=== PATIENT | male | born 1980 | race Caucasian/White ===

== ENCOUNTER 2016-08-09 15:16 | Emergency (ER) | payer OTHER ==
[~2016-08-09] VITALS: Ht 170.2 cm; Wt 59.0 kg
[2016-08-09 15:21] VITALS: TEMP 36.6; Ht 170.2 cm; Wt 59.0 kg
--- NOTE | 2016-08-09 15:51 | DIAGNOSTIC IMAGING REPORT ---
LEFT FOREARM 2 VIEWS CLINICAL HISTORY: Fall with left arm pain. FINDINGS: AP and lateral views of the left forearm are obtained. No prior studies are available for comparison at the time of dictation. The skeletal structures are well mineralized. There is no radiographic evidence of left forearm fracture. The elbow and wrist joints appear maintained. Mild soft tissue swelling is noted on the ulnar side of the distal forearm. IMPRESSION: Mild soft tissue swelling. There is no radiographic evidence of left forearm fracture. Electronically signed by: Ancelmo Givens M.D. 08/09/2016 3:50 PM Dictated Date/Time: 08/09/2016 3:48 PM
--- NOTE | 2016-08-09 16:11 | EMERGENCY ROOM VISIT NOTE ---
ED Visit Note First contact with patient: 15:30 CHIEF COMPLAINT: Wrist injury HISTORY OF PRESENT ILLNESS: This 36-year-old male patient presents to the emergency department ambulatory complaining of pain in the left forearm after falling while walking the dog and injuring his arm. He states he fell onto an outstretched hand. The patient is able to move their wrist. The patient states the pain is sharp and 5/10. No laceration, no weakness. No numbness or tingling. The patient denies any other injury. The patient is able to move their fingers and elbow without difficulty. The patient has none had any previous injuries to this arm. The patient has taken nothing for the pain. The patient reports an ongoing chronic back issue. The patient states that he is not able to sit or stand for long periods of time due to his chronic back pain. He states that this has not changed at all. REVIEW OF SYSTEMS: A 6 system review of systems was performed with positives and pertinent negatives in the HPI. ALLERGIES: Sulfa MEDICATIONS: Patient denies PMH: Patient denies SOCIAL HISTORY: The patient does not smoke. He lives locally PHYSICAL EXAM: Vital Signs: Reviewed Nurse's notes, vital signs stable. GENERAL : Is a 36-year-old male, in no acute distress, but appears to be in pain, well- developed, well-nourished. NEURO: Alert and oriented to person place and time. Normal sensation to light and sharp touch. MUSCULOSKELETAL: There is no deformity of the left wrist. There is no erythema and no ecchymosis. There is no edema. Tenderness over mid forearm. There is no ecchymosis, edema or deformity noted to the forearm. There is no snuff box tenderness. There is tenderness with palpation of the mid shaft of the left forearm.. Range of motion is intact at the wrist, elbow and shoulder. There is no tenderness of the elbow, hand or fingers. Assistant Cook strength 5/5. Radial pulse 2+. SKIN: Normal and intact. The hand is warm and well perfused with capillary refill less than 2 seconds. EMERGENCY DEPARTMENT COURSE: I examined the patient. An X-ray of the left forearm wed by myself and radiology and showed no fracture or dislocation. An arm sling was placed under my direction and the position was satisfactory. Neurovascular status rechecked and intact. The patient should follow-up with orthopedics next week if symptoms are not improving. The patient reports a history of chronic back pain. He was brought into the emergency department from private vehicle on a litter. The patient requested the same at the time of discharge. Per nursing staff the patient was able to get up and ambulate out of without any difficulty. He states that he has had chronic back issues and stated that there was no change or worsening back pain after the fall. The patient was discharged home in good condition. LEFT FOREARM 2 VIEWS CLINICAL HISTORY: Fall with left arm pain. FINDINGS: AP and lateral views of the left forearm are obtained. No prior studies are available for comparison at the time of dictation. The skeletal structures are well mineralized. There is no radiographic evidence of left forearm fracture. The elbow and wrist joints appear maintained. Mild soft tissue swelling is noted on the ulnar side of the distal forearm. IMPRESSION: Mild soft tissue swelling. There is no radiographic evidence of left forearm fracture. Current/Historical Medications Scheduled Multivitamin (Multivitamin), 1 TAB PO DAILY Allergies Coded Allergies: Sulfa Drugs (Verified Allergy, Unknown, ., 12/17/14) Vital Signs Date Time Temp Pulse Resp B/P (MAP) Pulse Ox O2 Delivery O2 Flow Rate FiO2 08/09/16 16:27 67 18 102/66 97 08/09/16 15:21 36.6 65 18 117/72 99 Room Air Departure Information Impression Primary Impression: Injury of left lower arm Dispostion Home / Self-Care Condition GOOD Referrals No Doctor, Assigned (PCP) Eric Bermudez D.O. Patient Instructions ED Contusion Upper Ext, [facility] [employer] Additional Instructions Wear the sling as needed over the next several days for pain. Be sure to move the shoulder to help prevent a frozen shoulder Motrin 600 mg every 6-8 hours for moderate pain Contact orthopedics to schedule a follow-up appointment for further evaluation and management Return with any worsening symptoms Problem Qualifiers Primary Impression: Injury of left lower arm Encounter type: initial encounter Qualified Codes: S59.912A - Unspecified injury of left forearm, initial encounter
[2016-08-09 16:27] VITALS: BP 102/66; PULSE 67; O2SAT 97
== END 2016-08-09 16:27 | disposition home or self-care (01) ==
LOC: C.EDD 15:21
DX: S59.912A Unspecified injury of left forearm, initial encounter (principal); W19.XXXA Unspecified fall, initial encounter; Y93.K1 Activity, walking an animal

== ENCOUNTER 2016-08-11 13:56 | Emergency (ER) | payer OTHER ==
[~2016-08-11] VITALS: Ht 170.2 cm; Wt 59.1 kg
[2016-08-11 14:00] VITALS: TEMP 36.9; Ht 170.2 cm; Wt 59.1 kg
--- NOTE | 2016-08-11 14:37 | EMERGENCY ROOM VISIT NOTE ---
ED Visit Note First contact with patient: 14:08 CHIEF COMPLAINT: Left arm pain HISTORY OF PRESENT ILLNESS: This 36-year-old male patient presents to the emergency department with his mother complaining of pain in the left forearm. Patient was evaluated in this emergency department 2 days ago after a FOOSH injury from a fall while walking his dog. Patient states he is back today because he is still having pain in the arm, "it isn't feeling any better and it feels unstable when I move it." The patient states he has not been wearing the sling that was given to him at discharge 2 days ago, and he has not been taking any ibuprofen or Tylenol for the pain. He has been using ice intermittently with some improvement. The patient also has not called orthopedics to set up a follow-up appointment yet. The patient rates his pain as aching and 4/10. The patient has not had previous fractures to this elbow. The patient does not have any numbness or tingling. The patient denies any other injuries. REVIEW OF SYSTEMS: A 6 system review of systems was completed with positives and pertinent negatives listed in the HPI. ALLERGIES: See chart MEDICATIONS: See chart PMH: See chart SOCIAL HISTORY: See chart PHYSICAL EXAM: Vital Signs: Reviewed Nurse's notes, vital signs stable. GENERAL : Pleasant and cooperative, in no acute distress, well-developed, well- nourished. SKIN: The skin was without rashes, erythema, edema, warmth, or bruising. Capillary reflex less than 3 seconds. MUSCULOSKELETAL: The patient is holding their left forearm. There is tenderness over the midshaft of the left forearm, but no bruising or swelling noted. There is no tenderness of the left wrist or elbow. There is no tenderness with range of motion of the left wrist or elbow. There is no tenderness of the shoulder, wrist, or hand. The patient is able to give a thumbs up, make an OK sign, and a #3 with their fingers. Radial pulse 2+. NEURO: Patient was alert and oriented to person place and time. Normal sensation to light and sharp touch. EMERGENCY DEPARTMENT COURSE: I examined the patient. An x-ray of the left forearm from 2 days ago was reviewed by myself and I also reviewed the radiology report, which showed no acute fracture. There is a small linear radiopaque lucency noted on the lateral view of the distal forearm that does not correlate with patient's pain, patient questioned about this and has no recollection of a possible foreign body. The patient is very concerned about a possible "hairline fracture" and states multiple times that "my arm feels unstable." Due to this concern, the patient was placed in an Ortho-Glass sugar tong splint to the left forearm under my direction and the position was satisfactory. Neurovascular status was rechecked and intact. The patient was instructed again to follow up with orthopedics within the next few days, he verbalized understanding. The patient was discharged home in stable condition. Current/Historical Medications Scheduled Multivitamin (Multivitamin), 1 TAB PO DAILY Allergies Coded Allergies: Sulfa Drugs (Verified Allergy, Unknown, ., 12/17/14) Vital Signs Date Time Temp Pulse Resp B/P (MAP) Pulse Ox O2 Delivery O2 Flow Rate FiO2 08/11/16 16:02 65 18 97/66 97 08/11/16 14:00 36.9 73 16 108/65 96 Room Air Departure Information Impression Primary Impression: Injury of forearm, left Dispostion Home / Self-Care Condition GOOD Referrals No Doctor, Assigned (PCP) Patient Instructions My [facility] Additional Instructions Where the splint on your left arm at all times. Keep the splint clean and dry. The splint cannot get wet. You may wear the sling as needed for comfort. Be sure to remove the sling 3 or 4 times a day to keep your shoulder from getting stiff. Tylenol 1000 mg every 8 hours or ibuprofen 600 mg every 6-8 hours as needed for pain. Call orthopedics today to set up an appointment for follow-up next week. Problem Qualifiers Primary Impression: Injury of forearm, left Encounter type: subsequent encounter Qualified Codes: S59.912D - Unspecified injury of left forearm, subsequent encounter
[2016-08-11] MEDS ORDERED: MULT-506 PO (16:01)
[2016-08-11 16:02] VITALS: BP 97/66; PULSE 65; O2SAT 97
== END 2016-08-11 16:02 | disposition home or self-care (01) ==
LOC: C.EDB 13:57 → C.EDD 16:02
DX: S59.912D Unspecified injury of left forearm, subsequent encounter (principal); W18.30XD Fall on same level, unspecified, subsequent encounter; Y93.K1 Activity, walking an animal

== ENCOUNTER 2017-03-03 13:57 | Inpatient (IN) | payer OTHER ==
[~2017-03-03] VITALS: Ht 170.2 cm; Wt 58.1 kg
[~2017-03-03 13:57] MED LIST: MULT-506 PO
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
[2017-03-03] MEDS ORDERED: LIDODERM (LIDOCAINE) PATCH 5% TD STA (15:03)
[2017-03-03 15:17] LABS: BASO % 0.3 %; BASO ABS # 0.02 K/uL (0-0.2); EOS % 0.4 %; EOS ABS # 0.03 K/uL (0-0.5); HEMATOCRIT 42.4 % (42-52); HEMOGLOBIN 15.6 g/dL (14.0-18.0); IG# 0.01 K/uL (0.00-0.02); LYMPH % 19.1 %; LYMPH ABS # 1.31 K/uL (1.2-3.4); MEAN CELL VOLUME 89.5 fL (80-100); MEAN CORPUSCULAR HEMOGLOBIN 32.9 pg (25-34); MEAN CORPUSCULAR HGB CONC 36.8 g/dl (32-36); MEAN PLATELET VOLUME 10.3 fL (7.4-10.4); MONO % 4.8 %; MONO ABS # 0.33 K/uL (0.11-0.59); NEUT % 75.3 %; NEUT ABS # 5.16 K/uL (1.4-6.5); PLATELET COUNT 237 K/uL (130-400); RED CELL DISTRIBUTION WIDTH CV 12.4 % (11.5-14.5); RED CELL DISTRIBUTION WIDTH SD 40.5 fL (36.4-46.3); WHITE BLOOD COUNT 6.86 K/uL (4.8-10.8)
[2017-03-03 15:35] LABS: ALBUMIN 3.9 gm/dl (3.4-5.0); CALCIUM 8.6 mg/dl (8.5-10.1); CREATININE 0.74 mg/dl (0.60-1.40); POTASSIUM 3.9 mmol/L (3.5-5.1)
[2017-03-03 15:46] LABS: TOTAL PROTEIN 7.4 gm/dl (6.4-8.2)
[2017-03-03] MEDS ORDERED: TRAMADOL HCL 50 MG TAB PO STA (15:52)
[2017-03-03] MEDS ORDERED: CYCLOBENZAPRINE HCL 10 MG TAB PO STA (16:44)
[2017-03-03] MEDS ORDERED: ACETAMINOPHEN 500 MG TAB PO STA (18:30)
[2017-03-03] MEDS ORDERED: NURSING VERBAL MED ORDER ONE (20:30)
[2017-03-03 20:41] VITALS: O2SAT 99
[2017-03-03] MEDS ORDERED: BISMUTH SUBSALICYLATE PER ML OMNICELL CHARGE PO PRN (20:45)
[2017-03-03] MEDS ORDERED: CYCLOBENZAPRINE HCL 10 MG TAB PO PRN (20:45)
[2017-03-03] MEDS ORDERED: hydrOXYzine HCL 25 MG TAB PO PRN ×2 (20:45)
[2017-03-03] MEDS ORDERED: ALUMINUM/MAGNESIUM SUSP 30 ML UDC PO PRN (20:45)
[2017-03-03] MEDS ORDERED: ACETAMINOPHEN 325 MG TAB PO PRN (20:45)
[2017-03-03] MEDS ORDERED: MAGNESIUM HYDROXIDE SUSP 30 ML UDC PO PRN (20:45)
[2017-03-03] MEDS ORDERED: SODIUM CHLORIDE 0.65% NA SOLN 45 ML (OCEAN) PRN (20:45)
[2017-03-03 21:44] VITALS: BP 122/72; PULSE 58; TEMP 37; Ht 170.2 cm; Wt 58.1 kg
[2017-03-04 06:40] VITALS: BP 121/84; TEMP 36.3
--- NOTE | 2017-03-04 09:27 | Psychiatric History & Physical ---
History Date of Service Mar 04, 2017. Identifying Data Padilla Hanna is a 36-year-old male admitted involuntarily on Mar 03, 2017 at 20:22 who was brought to the emergency department by EMS with reports of severe pain that "going on for the last 4-1/2 years. He made suicidal statements saying that he would kill himself by walking into traffic because the pain was so severe. Chief Complaint "I haven't slept well for the last couple of weeks.". History of Present Illness The patient is a 36-year-old male with past psychiatric history including anorexia bulimia that was treated inpatient [place] as a teen. He is not currently in any psychiatric treatment beyond having therapy with Flavia Solis. He reports that for the half years ago he had an accident at work while lifting in which he injured his back. He underwent an MRI, not at our facility, but per patient report, there were no bony abnormalities and no problems with discs. He underwent physical therapy which she said "didn't work". He said that the pain continued but was bearable until about 1-1/2 years ago when it got worse. It worsened again several weeks ago after he attempted to engage in stretching exercises. He had been able to walk on soft surfaces, stretches back out but recently claims he is not able to walk on any hard surface, without having mid back pain that he describes as an "irritation" and described as burning and occasionally shooting. He has some neck pain as well but not always coincident with his back pain. He denies radiculopathy. There have been times in his life when walking has helped as long as he stayed on soft surfaces. Recently as his pain has worsened, he has essentially taken to his bed. He has made claims that he cannot sit at all, eats meals while laying on his back, can only eat food prepared by his mother with whom he lives. Yesterday, he admits that he had been desperate to find relief from the pain and therefore presented to the emergency department. He does admit to making statements about being suicidal and thinking about walking into traffic, but today denies that he has any intent to do that and denies that he wants to end his life, saying that his statements were an expression of desperation. He describes that he has been depressed since he was a teenager. At that time he described his depression as a "heaviness, darkness". He was tried on Paxil which she felt didn't help and was also in therapy. This also coincided with the time he was severely anorexic and bulimic and was hospitalized at an eating disorders clinic in [place]. He feels this depression is different, more "situational" and directly related to his level of pain. He reports that his appetite has been okay although has lost about 15 pounds over the last 5 years since returning to [place] to live with his mother. He reports difficult sleep, specifically with initial insomnia, at its worst only getting 2 hours of sleep per night. He denies chronic anxiety or worry. He denies any self- injurious behaviors. He denies ever having had any auditory or visual hallucinations. He denies any first rank symptoms of schizophrenia. His current BMI is 20.1 and denies any focus on his weight although acknowledges that he appears slender and his mother is concerned. He denies any discrete episodes of euphoric mood, sleeplessness or pleasure seeking behaviors that would be congruent with a bipolar disorder. Past Psychiatric History Current OP Treatment: therapist (Flavia Jang) Prior OP Treatment: therapist Prior Psych Hospitalizations: none Access to a Gun: No Suicide Attempts: No Past Medication Trials Paxil- didn't work Past Medical/Surgical History History of Concussion/Seizure: No (1) Chronic back pain Allergies Allergies: Coded Allergies: Sulfa Drugs (Verified Allergy, Unknown, ., 03/03/17) Home Medications No Active Prescriptions or Reported Meds Family History FHx: cancer History of Suicide: Yes (cousin) History of Substance Abuse: No Psychiatric History: No Alcohol Use Alcohol Use In Past 12 Months: No AUDIT Total Score: 0 Smoking Use Smoking Status: Former Smoker Substance History Denies Personal History Lives in: [place] with his mother Childhood: Raised by both parents until they . He has one older sister. He has 1- 1/2 years of college but did not obtain a degree. He has not been able to work in the last 5 years. 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 Education: started college Work History: Hasn't worked in 5 years Relationship History: ( for 7 or 8 years, having 2-3 years ago) Children: none Spiritual Affiliation: Roman Catholic Legal History: none Psychological Trauma History: Denies Hx Traumatic Event Review of Systems Constitutional: denies no symptoms reported, denies see HPI, denies chills, denies diaphoresis, denies fever, denies malaise, denies weakness, denies other Eyes: denies: no symptoms, as stated in HPI, eye pain, tearing, itching, redness, discharge, double vision, visual changes, blurred vision, photophobia, other ENT: denies: no symptoms reported, see HPI, ear pain, ear discharge, loss of hearing, tinnitus, nasal pain, nasal congestion, rhinorrhea, epistaxis, sore throat, stidor, throat swelling, mouth pain, mouth swelling, dental pain, gum swelling, other Cardiovascular: denies: no symptoms reported, see HPI, chest pain, chest tightness, chest pressure, diaphoresis, palpitations, syncope, other Respiratory: denies: no symptoms reported, see HPI, cough, orthopnea, short of breath, stridor, wheezing, sputum production, cyanosis, LOAIZA, PND, other Gastrointestinal: denies no symptoms reported, denies see HPI, denies abdominal pain, denies constipation, denies diarrhea, denies nausea, denies vomiting, denies other Genitourinary - Male: denies: no symptoms, see HPI, rash, amenorrhea, penile itching, penile discharge, testicular pain, testicular swelling, impotence, other Musculoskeletal: other (mid back pain rated 4 out of 10, described as burning, occasionally shooting) Integumentary: denies no symptoms reported, denies see HPI, denies change in color, denies change in hair/nails, denies dryness, denies lesions, denies lumps , denies rash, denies other Neurologic: denies: no symptoms, see HPI, headache, numbness, paresthesias, pre -existing deficit, seizure, tingling, tremors, general weakness, tics, focal weakness, vertigo, lethargy, memory loss, dizziness, other Endocrine: denies: no symptoms, as stated in HPI, cold intolerance, heat intolerance, hair changes, goiter, polydipsia, polyuria, skin changes, other Hematologic / Lymphatic: denies: no symptoms, as stated in HPI, abnormal clotting, adenopathy, anemia, easy bleeding, easy bruising, gums bleeding, petechiae, other Examination Physical Examination Exam performed by Dr. lim in the emergency department yesterday has been reviewed and accepted his medical clearance for our unit Vital Signs Vital Signs Past 12 Hours Date Time Temp Pulse Resp B/P (MAP) Pulse Ox O2 Delivery O2 Flow Rate FiO2 03/04/17 06:40 36.3 16 121/84 03/03/17 21:44 37.0 58 18 122/72 Laboratory Results Last 24 Hours Test 03/03/17 14:25 03/03/17 15:00 03/03/17 16:03 Urine Color YELLOW Urine Appearance TURBID Urine pH 7.5 Urine Specific [place] 1.022 Urine Protein NEG Urine Glucose (UA) NEG Urine Ketones NEG Urine Occult Blood NEG Urine Nitrite NEG Urine Bilirubin NEG Urine Urobilinogen NEG Urine Leukocyte Esterase NEG Urine WBC (Auto) 1-5 /hpf Urine RBC (Auto) 0-4 /hpf Urine Hyaline Casts (Auto) 1-5 /lpf Urine Epithelial Cells (Auto) 5-10 /lpf Urine Bacteria (Auto) NEG Urine Opiates Screen NEG Urine Methadone, Qualitative NEG Urine Barbiturates NEG Urine Phencyclidine (PCP) Level NEG Ur Amphetamine/Methamphetamine NEG MDMA (Ecstasy) Screen NEG Urine Benzodiazepines Screen NEG Urine Cocaine Metabolite NEG Urine Marijuana (THC) NEG White Blood Count 6.86 K/uL Red Blood Count 4.74 M/uL Hemoglobin 15.6 g/dL Hematocrit 42.4 % Mean Corpuscular Volume 89.5 fL Mean Corpuscular Hemoglobin 32.9 pg Mean Corpuscular Hemoglobin Concent 36.8 g/dl Platelet Count 237 K/uL Mean Platelet Volume 10.3 fL Neutrophils (%) (Auto) 75.3 % Lymphocytes (%) (Auto) 19.1 % Monocytes (%) (Auto) 4.8 % Eosinophils (%) (Auto) 0.4 % Basophils (%) (Auto) 0.3 % Neutrophils # (Auto) 5.16 K/uL Lymphocytes # (Auto) 1.31 K/uL Monocytes # (Auto) 0.33 K/uL Eosinophils # (Auto) 0.03 K/uL Basophils # (Auto) 0.02 K/uL RDW Standard Deviation 40.5 fL RDW Coefficient of Variation 12.4 % Immature Granulocyte % (Auto) 0.1 % Immature Granulocyte # (Auto) 0.01 K/uL Sodium Level 137 mmol/L Potassium Level 3.9 mmol/L Chloride Level 102 mmol/L Carbon Dioxide Level 31 mmol/L Anion Gap 4.0 mmol/L Blood Urea Nitrogen 15 mg/dl Creatinine 0.74 mg/dl Est Creatinine Clear Calc Drug Dose 113.4 ml/min Estimated GFR () 137.5 Estimated GFR (Non- 118.7 BUN/Creatinine Ratio 19.7 Random Glucose 102 mg/dl Calcium Level 8.6 mg/dl Magnesium Level 2.4 mg/dl Total Bilirubin 0.5 mg/dl Aspartate Amino Transf (AST/SGOT) 16 U/L Alanine Aminotransferase (ALT/SGPT) 24 U/L Alkaline Phosphatase 53 U/L Total Protein 7.4 gm/dl Albumin 3.9 gm/dl Globulin 3.5 gm/dl Albumin/Globulin Ratio 1.1 Lipase 316 U/L Thyroid Stimulating Hormone (TSH) 0.744 uIu/ml Acetaminophen Level < 2 ug/ml Ethyl Alcohol mg/dL < 3.0 mg/dl Troponin I < 0.015 ng/ml Mental Examination During interview pt is: alert and oriented, cooperative Appearance: disheveled Eye contact is: good Motor behavior is: other (late on back in bed throughout interview, later seen in the hallway walking) Speech: normal in rate, rhythm & volume Affect: depressed, blunted, anxious Mood is: depressed Thought process: goal directed Thought content: reality based without delusions Suicidal thought are: present, Plan: denied, Intent: denied Homicidal thoughts are: denied Hallucinations: denies auditory, denies visual Cognition: memory grossly intact, attention grossly intact, language grossly intact Intelligence estimated to be: average Insight: impaired Judgement: impaired ( ) Impression / Recommendations Impression 36-year-old gentleman who presented to the emergency department because of severe back pain and suicidal thinking. He was 302. Today he admits to the suicidal statements but denies he has plan or intent, does not want to , and sees the Terry expression of his desperation to get help. He reports pain that is limiting his ability to function and even at the time of my interview was unwilling to get out of bed. The first thing we will do is consult [facility] hospitalist's to work his back pain up to rule out an organic cause. If nothing organic, could be seen as a psychotic depression. I suggested we start venlafaxine to target both mood and pain which he is hesitant to do, not wanting to be on medications. He is willing for a full medical workup. I have spoken with Desiree Guerrero from the hospitalist service who is agreeable to coming to evaluate him in transferring to the medical floor if needed. He is here on a 302 but meets no criteria at this point for medications over objection. He would likely not meet criteria for a 303 as he is not metabolically deranged, not psychotic. Inventory Assets Strengths: Lives with mother Needs: To cooperate with full workup Risk Factors Assessment Male: Yes : Yes /single/: Yes Higher / Fall in social status: Yes Access to guns: No Health problems: Yes Mental Health Diagnoses: Yes Substance use disorders: No Previous attempt: No Previous psychiatric stay: No Smoker: No Protective Factors Assessment [employer] beliefs: Yes : No Responsible for young children: No Employed: No Supportive family: Yes Recommendations (1) Unspecified mood [affective] disorder 03/04 -Recommend a trial of Effexor XR 37.5 mg titrating as tolerated which the patient is currently refusing - Will consult [facility] hospitalist for medical workup of pain to rule out an organic cause - Every 15 minute checks for safety - Encourage participation in group and individual counseling as able - The patient is here on a 302. Will continue to gather data toward the need for further inpatient care - Coordinate care with Flavia Jang (2) Chronic back pain 03/04 - Consult [facility] for medical workup CPT Code Initial Hospital Care: 54570
--- NOTE | 2017-03-04 10:00 | Psychiatric History & Physical ---
Psychiatric History & Physical History Date of Service Mar 04, 2017. Identifying Data Padilla Hanna is a 36-year-old male admitted involuntarily on Mar 03, 2017 at 20:22 who was brought to the emergency department by EMS with reports of severe pain that "going on for the last 4-1/2 years". He made suicidal statements saying that he would kill himself by walking into traffic because the pain was so severe. 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 Chief Complaint "I haven't been sleeping well". History of Present Illness The patient is a 36-year-old male with past psychiatric history including anorexia bulimia that was treated inpatient [place] as a teen. He is not currently in any psychiatric treatment beyond having therapy with Flavia Jang. He reports that for the half years ago he had an accident at work while lifting in which he injured his back. He underwent an MRI, not at our facility, but per patient report, there were no bony abnormalities and no problems with discs. He underwent physical therapy which she said "didn't work". He said that the pain continued but was bearable until about 1-1/2 years ago when it got worse. It worsened again several weeks ago after he attempted to engage in stretching exercises. He had been able to walk on soft surfaces, but recently claims he is not able to walk on any hard surface, without having mid back pain that he describes as an "irritation" and described as burning and occasionally shooting. He has some neck pain as well but not always at the same time as his back pain. He denies radiculopathy. There have been times in his life when walking has helped as long as he stayed on soft surfaces. Recently, as his pain has worsened, he has essentially taken to his bed. He has made claims that he cannot sit at all, eats meals while laying on his back, can only eat food prepared by his mother with whom he lives. Yesterday, he admits that he had been desperate to find relief from the pain and therefore presented to the emergency department. He does admit to making statements about being suicidal and thinking about walking into traffic, but today denies that he has any intent to do that and denies that he wants to end his life, saying that his statements were an expression of desperation. Additional history was provided by BRIDGER Hays: He describes that he has been depressed since he was a teenager. At that time he described his depression as a "heaviness, darkness". He was tried on Paxil which she felt didn't help and was also in therapy. This also coincided with the time he was severely anorexic and bulimic and was hospitalized at an eating disorders clinic in [place]. He feels this depression is different, more "situational" and directly related to his level of pain. He reports that his appetite has been okay although has lost about 15 pounds over the last 5 years since returning to [place] to live with his mother. He reports difficult sleep, specifically with initial insomnia, at its worst only getting 2 hours of sleep per night. He denies chronic anxiety or worry. He denies any self- injurious behaviors. He denies ever having had any auditory or visual hallucinations. He denies any first rank symptoms of schizophrenia. His current BMI is 20.1 and denies any focus on his weight although acknowledges that he appears slender and his mother is concerned. He denies any discrete episodes of euphoric mood, sleeplessness or pleasure seeking behaviors that would be congruent with a bipolar disorder. Past Psychiatric History Current OP Treatment: therapist (Flavia Jang) Prior OP Treatment: therapist Prior Psych Hospitalizations: none Access to a Gun: No Suicide Attempts: No Past Medication Trials Paxil- didn't work Past Medical/Surgical History History of Concussion/Seizure: No (1) Chronic back pain Allergies Allergies: Coded Allergies: Sulfa Drugs (Verified Allergy, Unknown, ., 03/03/17) Home Medications No Active Prescriptions or Reported Meds Family History FHx: cancer History of Suicide: Yes (cousin) History of Substance Abuse: No Psychiatric History: No Alcohol Use Alcohol Use In Past 12 Months: No AUDIT Total Score: 0 Smoking Use Smoking Status: Former Smoker Substance History Denies Personal History Lives in: [place] with his mother Childhood: Raised by both parents until they . He has one older sister. He has 1- 1/2 years of college but did not obtain a degree. He has not been able to work in the last 5 years. 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 Education: started college Work History: Hasn't worked in 5 years Relationship History: ( for 7 or 8 years, having 2-3 years ago) Children: none Spiritual Affiliation: Congregation Legal History: none Psychological Trauma History: Denies Hx Traumatic Event Review of Systems Constitutional: denies no symptoms reported, denies see HPI, denies chills, denies diaphoresis, denies fever, denies malaise, denies weakness, denies other Eyes: denies: no symptoms, as stated in HPI, eye pain, tearing, itching, redness, discharge, double vision, visual changes, blurred vision, photophobia, other ENT: denies: no symptoms reported, see HPI, ear pain, ear discharge, loss of hearing, tinnitus, nasal pain, nasal congestion, rhinorrhea, epistaxis, sore throat, stidor, throat swelling, mouth pain, mouth swelling, dental pain, gum swelling, other Cardiovascular: denies: no symptoms reported, see HPI, chest pain, chest tightness, chest pressure, diaphoresis, palpitations, syncope, other Respiratory: denies: no symptoms reported, see HPI, cough, orthopnea, short of breath, stridor, wheezing, sputum production, cyanosis, LOAIZA, PND, other Gastrointestinal: denies no symptoms reported, denies see HPI, denies abdominal pain, denies constipation, denies diarrhea, denies nausea, denies vomiting, denies other Genitourinary - Male: denies: no symptoms, see HPI, rash, amenorrhea, penile itching, penile discharge, testicular pain, testicular swelling, impotence, other Musculoskeletal: other (mid back pain rated 4 out of 10, described as burning, occasionally shooting) Integumentary: denies no symptoms reported, denies see HPI, denies change in color, denies change in hair/nails, denies dryness, denies lesions, denies lumps , denies rash, denies other Neurologic: denies: no symptoms, see HPI, headache, numbness, paresthesias, pre -existing deficit, seizure, tingling, tremors, general weakness, tics, focal weakness, vertigo, lethargy, memory loss, dizziness, other Endocrine: denies: no symptoms, as stated in HPI, cold intolerance, heat intolerance, hair changes, goiter, polydipsia, polyuria, skin changes, other Hematologic / Lymphatic: denies: no symptoms, as stated in HPI, abnormal clotting, adenopathy, anemia, easy bleeding, easy bruising, gums bleeding, petechiae, other Examination Physical Examination Exam performed by Dr. Nunes in the emergency department yesterday has been reviewed and accepted his medical clearance for admission to our unit. Vital Signs Vital Signs Past 12 Hours Date Time Temp Pulse Resp B/P (MAP) Pulse Ox O2 Delivery O2 Flow Rate FiO2 03/04/17 06:40 36.3 16 121/84 03/03/17 21:44 37.0 58 18 122/72 Laboratory Results Last 24 Hours Test 03/03/17 14:25 03/03/17 15:00 03/03/17 16:03 Urine Color YELLOW Urine Appearance TURBID Urine pH 7.5 Urine Specific [place] 1.022 Urine Protein NEG Urine Glucose (UA) NEG Urine Ketones NEG Urine Occult Blood NEG Urine Nitrite NEG Urine Bilirubin NEG Urine Urobilinogen NEG Urine Leukocyte Esterase NEG Urine WBC (Auto) 1-5 /hpf Urine RBC (Auto) 0-4 /hpf Urine Hyaline Casts (Auto) 1-5 /lpf Urine Epithelial Cells (Auto) 5-10 /lpf Urine Bacteria (Auto) NEG Urine Opiates Screen NEG Urine Methadone, Qualitative NEG Urine Barbiturates NEG Urine Phencyclidine (PCP) Level NEG Ur Amphetamine/Methamphetamine NEG MDMA (Ecstasy) Screen NEG Urine Benzodiazepines Screen NEG Urine Cocaine Metabolite NEG Urine Marijuana (THC) NEG White Blood Count 6.86 K/uL Red Blood Count 4.74 M/uL Hemoglobin 15.6 g/dL Hematocrit 42.4 % Mean Corpuscular Volume 89.5 fL Mean Corpuscular Hemoglobin 32.9 pg Mean Corpuscular Hemoglobin Concent 36.8 g/dl Platelet Count 237 K/uL Mean Platelet Volume 10.3 fL Neutrophils (%) (Auto) 75.3 % Lymphocytes (%) (Auto) 19.1 % Monocytes (%) (Auto) 4.8 % Eosinophils (%) (Auto) 0.4 % Basophils (%) (Auto) 0.3 % Neutrophils # (Auto) 5.16 K/uL Lymphocytes # (Auto) 1.31 K/uL Monocytes # (Auto) 0.33 K/uL Eosinophils # (Auto) 0.03 K/uL Basophils # (Auto) 0.02 K/uL RDW Standard Deviation 40.5 fL RDW Coefficient of Variation 12.4 % Immature Granulocyte % (Auto) 0.1 % Immature Granulocyte # (Auto) 0.01 K/uL Sodium Level 137 mmol/L Potassium Level 3.9 mmol/L Chloride Level 102 mmol/L Carbon Dioxide Level 31 mmol/L Anion Gap 4.0 mmol/L Blood Urea Nitrogen 15 mg/dl Creatinine 0.74 mg/dl Est Creatinine Clear Calc Drug Dose 113.4 ml/min Estimated GFR () 137.5 Estimated GFR (Non- 118.7 BUN/Creatinine Ratio 19.7 Random Glucose 102 mg/dl Calcium Level 8.6 mg/dl Magnesium Level 2.4 mg/dl Total Bilirubin 0.5 mg/dl Aspartate Amino Transf (AST/SGOT) 16 U/L Alanine Aminotransferase (ALT/SGPT) 24 U/L Alkaline Phosphatase 53 U/L Total Protein 7.4 gm/dl Albumin 3.9 gm/dl Globulin 3.5 gm/dl Albumin/Globulin Ratio 1.1 Lipase 316 U/L Thyroid Stimulating Hormone (TSH) 0.744 uIu/ml Acetaminophen Level < 2 ug/ml Ethyl Alcohol mg/dL < 3.0 mg/dl Troponin I < 0.015 ng/ml Mental Examination During interview pt is: alert and oriented, cooperative Appearance: disheveled Eye contact is: good Motor behavior is: other (late on back in bed throughout interview, later seen in the hallway walking) Speech: normal in rate, rhythm & volume Affect: depressed, blunted, anxious Mood is: depressed Thought process: goal directed Thought content: reality based without delusions Suicidal thought are: present, Plan: denied, Intent: denied Homicidal thoughts are: denied Hallucinations: denies auditory, denies visual Cognition: memory grossly intact, attention grossly intact, language grossly intact Intelligence estimated to be: average Insight: impaired Judgement: impaired ( ) Impression / Recommendations Impression 36-year-old gentleman who presented to the emergency department because of severe back pain and suicidal thinking. He was 302. Today he admits to the suicidal statements but denies he has plan or intent, does not want to , and sees the statements as more of an expression of his desperation to get help. He reports pain that is limiting his ability to function and even at the time of my interview was unwilling to get out of bed. The first thing we will do is consult [facility] hospitalists to work his back pain up to rule out an organic cause. If nothing organic, could be seen as a psychotic depression. He reconfirmed that he would decline SNRI as suggested by BRIDGER Hays who recommended venlafaxine to target both mood and pain which he is hesitant to do , not wanting to be on medications. He is willing for a full medical workup. BRIDGER Hays as contacted Dr. Desiree Guerrero from the hospitalist service who is agreeable to coming to evaluate him in transferring to the medical floor if needed. He is here on a 302 but meets no criteria at this point for medications over objection. He would likely not meet criteria for a 303 as he is not metabolically deranged, not psychotic. Inventory Assets Strengths: Lives with mother Needs: To cooperate with full workup Risk Factors Assessment Male: Yes : Yes /single/: Yes Higher / Fall in social status: Yes Access to guns: No Health problems: Yes Mental Health Diagnoses: Yes Substance use disorders: No Previous attempt: No Previous psychiatric stay: No Smoker: No Protective Factors Assessment Zoroastrianism beliefs: Yes : No Responsible for young children: No Employed: No Supportive family: Yes Recommendations (1) Unspecified mood [affective] disorder 03/04 -Recommend a trial of Effexor XR 37.5 mg titrating as tolerated which the patient is currently refusing - Will consult [facility] hospitalist for medical workup of pain to rule out an organic cause - Every 15 minute checks for safety - Encourage participation in group and individual counseling as able - The patient is here on a 302. Will continue to gather data toward the need for further inpatient care - Coordinate care with Flavia Jang (2) Chronic back pain 03/04 - [facility] for [facility] workup. CPT Code Initial Hospital Care: [id number]
--- NOTE | 2017-03-04 10:38 | Discharge Instructions ---
Discharge Information Report Includes Report will include the: Discharge Instructions & Summary Admission Admission Date / Time: Mar 03, 2017 at 20:22 Reason for Admission: Suicidal Ideation Discharge Discharge Diagnosis / Problem: mood disorder unspecified Condition at Discharge: Discharge Goals Goal(s): Decrease discomfort, Improve function, Improve disease control Activity Recommendations Activity Limitations: resume your previous activity . Instructions / Follow-Up Instructions / Follow-Up . SPECIAL CARE INSTRUCTIONS: 1. Follow through with your scheduled aftercare appointments. If unable to keep an appointment, please call to reschedule. 2. Take your medication only as prescribed. Medication should not be changed or stopped without the approval of your doctor. In the event of worsening symptoms or concerns about side effects, contact your doctor immediately. 3. Utilize new healthy coping skills, anger management skills, and stress management skills learned during your hospitalization. Journal feelings and process them with a support person. Identify stressors or situations that may result in relapse, deterioration or inappropriate behaviors and develop a plan to deal with those issues. 4. If your coping skills are ineffective and you are in crisis, contact your outpatient providers for direction. If unable to reach your providers, please call the CAN HELP LINE AT or go to the closest Emergency Room. 5. Avoid alcohol and un-prescribed drugs. 6. You have been provided with the Mental Health Advance Directives Pamphlet for your review. AFTERCARE APPOINTMENTS: * Please call your insurance company prior to your scheduled appointment to confirm your aftercare providers are covered. Take your insurance information to your appointments. . Discharge / Aftercare Planning Primary Care Physician: Name: GINA Gupta Therapist: Name Of Therapist: Simeon Wolf Date of Appointment: Mar 06, 2017 Shutdown Coordinator: Name: None . Follow-Up Care Plan for Follow-Up Care: Patient being transferred to medical for work up of chronic pain Current Hospital Diet Patient's current hospital diet: Regular Diet Discharge Diet Recommended Diet: Regular Diet Procedures Procedures Performed: No Pending Studies Pending Studies at Discharge: No Medical Emergencies . Who to Call and When: Medical Emergencies: For questions or emergencies related to your hospital stay, please contact the Inpatient Behavioral Health Unit at [phone]. A billing clinician is on-call 28/08 for the Behavioral Health Unit for emergencies At any time you feel your situation is an emergency, you may also call 911 immediately. . Non-Emergent Contact Non-Emergency issues call your: Hospital Doctor Advance Directives Do You Have an Existing Mental: No Existing Living Will: No Existing Power of College Athlete: No Advance Directives Info Given: To Pt/S.O. Advance Directives Reason: Declines as Mental Health Visit. Discharge Summary Admission HPI Per the Admitting provider: The patient is a 36-year-old male with past psychiatric history including anorexia bulimia that was treated inpatient [place] as a teen. He is not currently in any psychiatric treatment beyond having therapy with Flavia Solis. He reports that for the half years ago he had an accident at work while lifting in which he injured his back. He underwent an MRI, not at our facility, but per patient report, there were no bony abnormalities and no problems with discs. He underwent physical therapy which she said "didn't work". He said that the pain continued but was bearable until about 1-1/2 years ago when it got worse. It worsened again several weeks ago after he attempted to engage in stretching exercises. He had been able to walk on soft surfaces, stretches back out but recently claims he is not able to walk on any hard surface, without having mid back pain that he describes as an "irritation" and described as burning and occasionally shooting. He has some neck pain as well but not always coincident with his back pain. He denies radiculopathy. There have been times in his life when walking has helped as long as he stayed on soft surfaces. Recently as his pain has worsened, he has essentially taken to his bed. He has made claims that he cannot sit at all, eats meals while laying on his back, can only eat food prepared by his mother with whom he lives. Yesterday, he admits that he had been desperate to find relief from the pain and therefore presented to the emergency department. He does admit to making statements about being suicidal and thinking about walking into traffic, but today denies that he has any intent to do that and denies that he wants to end his life, saying that his statements were an expression of desperation. He describes that he has been depressed since he was a teenager. At that time he described his depression as a "heaviness, darkness". He was tried on Paxil which she felt didn't help and was also in therapy. This also coincided with the time he was severely anorexic and bulimic and was hospitalized at an eating disorders clinic in [place]. He feels this depression is different, more "situational" and directly related to his level of pain. He reports that his appetite has been okay although has lost about 15 pounds over the last 5 years since returning to [place] to live with his mother. He reports difficult sleep, specifically with initial insomnia, at its worst only getting 2 hours of sleep per night. He denies chronic anxiety or worry. He denies any self- injurious behaviors. He denies ever having had any auditory or visual hallucinations. He denies any first rank symptoms of schizophrenia. His current BMI is 20.1 and denies any focus on his weight although acknowledges that he appears slender and his mother is concerned. He denies any discrete episodes of euphoric mood, sleeplessness or pleasure seeking behaviors that would be congruent with a bipolar disorder. Hospital Course (1) Unspecified mood [affective] disorder 03/04 -Recommend a trial of Effexor XR 37.5 mg titrating as tolerated which the patient is currently refusing - Will consult [facility] hospitalist for medical workup of pain to rule out an organic cause - Every 15 minute checks for safety - Encourage participation in group and individual counseling as able - The patient is here on a 302. Will continue to gather data toward the need for further inpatient care - Coordinate care with Flavia Jang (2) Chronic back pain 03/04 [facility] Risk Factors Assessment Male: Yes : Yes /single/: Yes Higher / Fall in social status: Yes Health problems: Yes Mental Health Diagnoses: Yes Substance use disorders: No Previous attempt: No Previous psychiatric stay: No Smoker: No Protective Factors Assessment Yarsanism beliefs: Yes : No Responsible for young children: No Employed: No Supportive family: Yes Day of Discharge Assessment 36-year-old male admitted to our unit last night on a 302 involuntary commitment after having made a suicidal statement in the context of chronic unrelenting pain. Today he is denying he has plan or intent and says that he made that statement has an active desperation because he is in such pain and poorly functional. We obtained a consult with hospitalist Dr. Cruz who is requesting the patient be transferred to medical floor for medical workup. The patient will remain on a 302 although at this point he denies any suicidal plan or intent and could likely be observed on every 15 minute checks and not one to one. We will follow along on a consult basis while on the floor to determine need to return to our mental health unit after pain has been worked up. Laboratory Test 03/03/17 14:25 03/03/17 15:00 03/03/17 16:03 Urine Color YELLOW Urine Appearance TURBID Urine pH 7.5 Urine Specific [place] 1.022 Urine Protein NEG Urine Glucose (UA) NEG Urine Ketones NEG Urine Occult Blood NEG Urine Nitrite NEG Urine Bilirubin NEG Urine Urobilinogen NEG Urine Leukocyte Esterase NEG Urine WBC (Auto) 1-5 Urine RBC (Auto) 0-4 Urine Hyaline Casts (Auto) 1-5 Urine Epithelial Cells (Auto) 5-10 Urine Bacteria (Auto) NEG Urine Opiates Screen NEG Urine Methadone, Qualitative NEG Urine Barbiturates NEG Urine Phencyclidine (PCP) Level NEG Ur Amphetamine/Methamphetamine NEG MDMA (Ecstasy) Screen NEG Urine Benzodiazepines Screen NEG Urine Cocaine Metabolite NEG Urine Marijuana (THC) NEG White Blood Count 6.86 Red Blood Count 4.74 Hemoglobin 15.6 Hematocrit 42.4 Mean Corpuscular Volume 89.5 Mean Corpuscular Hemoglobin 32.9 Mean Corpuscular Hemoglobin Concent 36.8 Platelet Count 237 Mean Platelet Volume 10.3 Neutrophils (%) (Auto) 75.3 Lymphocytes (%) (Auto) 19.1 Monocytes (%) (Auto) 4.8 Eosinophils (%) (Auto) 0.4 Basophils (%) (Auto) 0.3 Neutrophils # (Auto) 5.16 Lymphocytes # (Auto) 1.31 Monocytes # (Auto) 0.33 Eosinophils # (Auto) 0.03 Basophils # (Auto) 0.02 RDW Standard Deviation 40.5 RDW Coefficient of Variation 12.4 Immature Granulocyte % (Auto) 0.1 Immature Granulocyte # (Auto) 0.01 Sodium Level 137 Potassium Level 3.9 Chloride Level 102 Carbon Dioxide Level 31 Anion Gap 4.0 Blood Urea Nitrogen 15 Creatinine 0.74 Est Creatinine Clear Calc Drug Dose 113.4 Estimated GFR () 137.5 Estimated GFR (Non- 118.7 BUN/Creatinine Ratio 19.7 Random Glucose 102 Calcium Level 8.6 Magnesium Level 2.4 Total Bilirubin 0.5 Aspartate Amino Transferase (AST) 16 Alanine Aminotransferase (ALT) 24 Alkaline Phosphatase 53 Total Protein 7.4 Albumin 3.9 Globulin 3.5 Albumin/Globulin Ratio 1.1 Lipase 316 Thyroid Stimulating Hormone (TSH) 0.744 Acetaminophen Level < 2 Ethyl Alcohol mg/dL < 3.0 Troponin I < 0.015 Total Time Total Time Spent (min): Less than 30 minutes Total Time Included: examination of the patient, discharge planning, medication reconciliation, communication with other providers Tobacco Cessation at Discharge Smoking Status: Former Smoker FDA approved Prescription: non-smoker
[2017-03-04 10:58] VITALS: BP 121/84; PULSE 58; TEMP 36.3; O2SAT 99
--- NOTE | 2017-03-04 14:14 | Psychiatric Consultation ---
Psychiatric Consultation Date of Service: Mar 04, 2017. Below is the full H&P completed this AM after admission to the mental health unit. Recommendations remain for a trial of Effexor XR 37.5 mg daily titrating as tolerated to target mood and pain. He refused to consider today, but will see again tomorrow to discuss again. He is on a 302 that remains valid on the medical floor. We will continue to gather information toward the need for additional inpatient mental health treatment &/ or the need for a 303 commitment. History Date of Service Mar 04, 2017. Identifying Data Padilla Hanna is a 36-year-old male admitted involuntarily on Mar 03, 2017 at 20:22 who was brought to the emergency department by EMS with reports of severe pain that "going on for the last 4-1/2 years. He made suicidal statements saying that he would kill himself by walking into traffic because the pain was so severe. Chief Complaint "I haven't slept well for the last couple of weeks.". History of Present Illness The patient is a 36-year-old male with past psychiatric history including anorexia bulimia that was treated inpatient [place] as a teen. He is not currently in any psychiatric treatment beyond having therapy with Flavia Solis. He reports that for the half years ago he had an accident at work while lifting in which he injured his back. He underwent an MRI, not at our facility, but per patient report, there were no bony abnormalities and no problems with discs. He underwent physical therapy which she said "didn't work". He said that the pain continued but was bearable until about 1-1/2 years ago when it got worse. It worsened again several weeks ago after he attempted to engage in stretching exercises. He had been able to walk on soft surfaces, stretches back out but recently claims he is not able to walk on any hard surface, without having mid back pain that he describes as an "irritation" and described as burning and occasionally shooting. He has some neck pain as well but not always coincident with his back pain. He denies radiculopathy. There have been times in his life when walking has helped as long as he stayed on soft surfaces. Recently as his pain has worsened, he has essentially taken to his bed. He has made claims that he cannot sit at all, eats meals while laying on his back, can only eat food prepared by his mother with whom he lives. Yesterday, he admits that he had been desperate to find relief from the pain and therefore presented to the emergency department. He does admit to making statements about being suicidal and thinking about walking into traffic, but today denies that he has any intent to do that and denies that he wants to end his life, saying that his statements were an expression of desperation. He describes that he has been depressed since he was a teenager. At that time he described his depression as a "heaviness, darkness". He was tried on Paxil which she felt didn't help and was also in therapy. This also coincided with the time he was severely anorexic and bulimic and was hospitalized at an eating disorders clinic in [place]. He feels this depression is different, more "situational" and directly related to his level of pain. He reports that his appetite has been okay although has lost about 15 pounds over the last 5 years since returning to [place] to live with his mother. He reports difficult sleep, specifically with initial insomnia, at its worst only getting 2 hours of sleep per night. He denies chronic anxiety or worry. He denies any self- injurious behaviors. He denies ever having had any auditory or visual hallucinations. He denies any first rank symptoms of schizophrenia. His current BMI is 20.1 and denies any focus on his weight although acknowledges that he appears slender and his mother is concerned. He denies any discrete episodes of euphoric mood, sleeplessness or pleasure seeking behaviors that would be congruent with a bipolar disorder. Past Psychiatric History Current OP Treatment: therapist (Flavia Jang) Prior OP Treatment: therapist Prior Psych Hospitalizations: none Access to a Gun: No Suicide Attempts: No Past Medication Trials Paxil- didn't work Past Medical/Surgical History History of Concussion/Seizure: No (1) Chronic back pain Allergies Allergies: Coded Allergies: Sulfa Drugs (Verified Allergy, Unknown, ., 03/03/17) Home Medications No Active Prescriptions or Reported Meds Family History FHx: cancer History of Suicide: Yes (cousin) History of Substance Abuse: No Psychiatric History: No Alcohol Use Alcohol Use In Past 12 Months: No AUDIT Total Score: 0 Smoking Use Smoking Status: Former Smoker Substance History Denies Personal History Lives in: [place] with his mother Childhood: Raised by both parents until they . He has one older sister. He has 1- 1/2 years of college but did not obtain a degree. He has not been able to work in the last 5 years. 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 Education: started college Work History: Hasn't worked in 5 years Relationship History: ( for 7 or 8 years, having 2-3 years ago) Children: none Spiritual Affiliation: Congregational Legal History: none Psychological Trauma History: Denies Hx Traumatic Event Psychiatric H&P: ROS v4 Review of Systems Constitutional: denies no symptoms reported, denies see HPI, denies chills, denies diaphoresis, denies fever, denies malaise, denies weakness, denies other Eyes: denies: no symptoms, as stated in HPI, eye pain, tearing, itching, redness, discharge, double vision, visual changes, blurred vision, photophobia, other ENT: denies: no symptoms reported, see HPI, ear pain, ear discharge, loss of hearing, tinnitus, nasal pain, nasal congestion, rhinorrhea, epistaxis, sore throat, stidor, throat swelling, mouth pain, mouth swelling, dental pain, gum swelling, other Cardiovascular: denies: no symptoms reported, see HPI, chest pain, chest tightness, chest pressure, diaphoresis, palpitations, syncope, other Respiratory: denies: no symptoms reported, see HPI, cough, orthopnea, short of breath, stridor, wheezing, sputum production, cyanosis, LOAIZA, PND, other Gastrointestinal: denies no symptoms reported, denies see HPI, denies abdominal pain, denies constipation, denies diarrhea, denies nausea, denies vomiting, denies other Genitourinary - Male: denies: no symptoms, see HPI, rash, amenorrhea, penile itching, penile discharge, testicular pain, testicular swelling, impotence, other Musculoskeletal: other (mid back pain rated 4 out of 10, described as burning, occasionally shooting) Integumentary: denies no symptoms reported, denies see HPI, denies change in color, denies change in hair/nails, denies dryness, denies lesions, denies lumps , denies rash, denies other Neurologic: denies: no symptoms, see HPI, headache, numbness, paresthesias, pre -existing deficit, seizure, tingling, tremors, general weakness, tics, focal weakness, vertigo, lethargy, memory loss, dizziness, other Endocrine: denies: no symptoms, as stated in HPI, cold intolerance, heat intolerance, hair changes, goiter, polydipsia, polyuria, skin changes, other Hematologic / Lymphatic: denies: no symptoms, as stated in HPI, abnormal clotting, adenopathy, anemia, easy bleeding, easy bruising, gums bleeding, petechiae, other Psychiatric H&P: Exam v4 Examination Physical Examination Exam performed by Dr. lim in the emergency department yesterday has been reviewed and accepted his medical clearance for our unit Vital Signs Vital Signs Past 12 Hours Date Time Temp Pulse Resp B/P (MAP) Pulse Ox O2 Delivery O2 Flow Rate FiO2 03/04/17 06:40 36.3 16 121/84 03/03/17 21:44 37.0 58 18 122/72 Laboratory Results Last 24 Hours Test 03/03/17 14:25 03/03/17 15:00 03/03/17 16:03 Urine Color YELLOW Urine Appearance TURBID Urine pH 7.5 Urine Specific Braxton 1.022 Urine Protein NEG Urine Glucose (UA) NEG Urine Ketones NEG Urine Occult Blood NEG Urine Nitrite NEG Urine Bilirubin NEG Urine Urobilinogen NEG Urine Leukocyte Esterase NEG Urine WBC (Auto) 1-5 /hpf Urine RBC (Auto) 0-4 /hpf Urine Hyaline Casts (Auto) 1-5 /lpf Urine Epithelial Cells (Auto) 5-10 /lpf Urine Bacteria (Auto) NEG Urine Opiates Screen NEG Urine Methadone, Qualitative NEG Urine Barbiturates NEG Urine Phencyclidine (PCP) Level NEG Ur Amphetamine/Methamphetamine NEG MDMA (Ecstasy) Screen NEG Urine Benzodiazepines Screen NEG Urine Cocaine Metabolite NEG Urine Marijuana (THC) NEG White Blood Count 6.86 K/uL Red Blood Count 4.74 M/uL Hemoglobin 15.6 g/dL Hematocrit 42.4 % Mean Corpuscular Volume 89.5 fL Mean Corpuscular Hemoglobin 32.9 pg Mean Corpuscular Hemoglobin Concent 36.8 g/dl Platelet Count 237 K/uL Mean Platelet Volume 10.3 fL Neutrophils (%) (Auto) 75.3 % Lymphocytes (%) (Auto) 19.1 % Monocytes (%) (Auto) 4.8 % Eosinophils (%) (Auto) 0.4 % Basophils (%) (Auto) 0.3 % Neutrophils # (Auto) 5.16 K/uL Lymphocytes # (Auto) 1.31 K/uL Monocytes # (Auto) 0.33 K/uL Eosinophils # (Auto) 0.03 K/uL Basophils # (Auto) 0.02 K/uL RDW Standard Deviation 40.5 fL RDW Coefficient of Variation 12.4 % Immature Granulocyte % (Auto) 0.1 % Immature Granulocyte # (Auto) 0.01 K/uL Sodium Level 137 mmol/L Potassium Level 3.9 mmol/L Chloride Level 102 mmol/L Carbon Dioxide Level 31 mmol/L Anion Gap 4.0 mmol/L Blood Urea Nitrogen 15 mg/dl Creatinine 0.74 mg/dl Est Creatinine Clear Calc Drug Dose 113.4 ml/min Estimated GFR () 137.5 Estimated GFR (Non- 118.7 BUN/Creatinine Ratio 19.7 Random Glucose 102 mg/dl Calcium Level 8.6 mg/dl Magnesium Level 2.4 mg/dl Total Bilirubin 0.5 mg/dl Aspartate Amino Transf (AST/SGOT) 16 U/L Alanine Aminotransferase (ALT/SGPT) 24 U/L Alkaline Phosphatase 53 U/L Total Protein 7.4 gm/dl Albumin 3.9 gm/dl Globulin 3.5 gm/dl Albumin/Globulin Ratio 1.1 Lipase 316 U/L Thyroid Stimulating Hormone (TSH) 0.744 uIu/ml Acetaminophen Level < 2 ug/ml Ethyl Alcohol mg/dL < 3.0 mg/dl Troponin I < 0.015 ng/ml Mental Examination During interview pt is: alert and oriented, cooperative Appearance: disheveled Eye contact is: good Motor behavior is: other (late on back in bed throughout interview, later seen in the hallway walking) Speech: normal in rate, rhythm & volume Affect: depressed, blunted, anxious Mood is: depressed Thought process: goal directed Thought content: reality based without delusions Suicidal thought are: present, Plan: denied, Intent: denied Homicidal thoughts are: denied Hallucinations: denies auditory, denies visual Cognition: memory grossly intact, attention grossly intact, language grossly intact Intelligence estimated to be: average Insight: impaired Judgement: impaired ( ) Psychiatric H&P: Impression v4 Impression / Recommendations Impression 36-year-old gentleman who presented to the emergency department because of severe back pain and suicidal thinking. He was 302. Today he admits to the suicidal statements but denies he has plan or intent, does not want to , and sees the Terry expression of his desperation to get help. He reports pain that is limiting his ability to function and even at the time of my interview was unwilling to get out of bed. The first thing we will do is consult [facility] hospitalist's to work his back pain up to rule out an organic cause. If nothing organic, could be seen as a psychotic depression. I suggested we start venlafaxine to target both mood and pain which he is hesitant to do, not wanting to be on medications. He is willing for a full medical workup. I have spoken with Desiree Guerrero from the hospitalist service who is agreeable to coming to evaluate him in transferring to the medical floor if needed. He is here on a 302 but meets no criteria at this point for medications over objection. He would likely not meet criteria for a 303 as he is not metabolically deranged, not psychotic. Inventory Assets Strengths: Lives with mother Needs: To cooperate with full workup Risk Factors Assessment Male: Yes : Yes /single/: Yes Higher / Fall in social status: Yes Access to guns: No Health problems: Yes Mental Health Diagnoses: Yes Substance use disorders: No Previous attempt: No Previous psychiatric stay: No Smoker: No Protective Factors Assessment Zoroastrian beliefs: Yes : No Responsible for young children: No Employed: No Supportive family: Yes Recommendations (1) Unspecified mood [affective] disorder 03/04 -Recommend a trial of Effexor XR 37.5 mg titrating as tolerated which the patient is currently refusing - Will consult [facility] for medical workup of pain to rule out an organic cause - Every 15 minute checks for safety - Encourage participation in group and individual counseling as able - The patient is here on a 302. Will continue to gather data toward the need for further inpatient care - Coordinate care with Flavia Jang (2) Chronic back pain 03/04 - Consult [facility] for medical workup
== END 2017-03-04 11:49 | disposition home or self-care (01) | DRG 881 ==
LOC: EDBD 13:57 → C.EDA 13:59 → C.MHU 20:22
PROVIDERS: ADMIT Psychiatry & Neurology Child & Adolescent Psychiatry; ATTEND Psychiatry & Neurology Psychiatry
DX: F32.9 Major depressive disorder, single episode, unspecified (principal); R45.851 Suicidal ideations; M54.9 Dorsalgia, unspecified; G89.29 Other chronic pain; Z87.891 Personal history of nicotine dependence; Z80.9 Family history of malignant neoplasm, unspecified

== ENCOUNTER 2017-03-04 11:50 | Inpatient (IN) | payer OTHER ==
[~2017-03-04] VITALS: Ht 170.2 cm; Wt 58.1 kg
[2017-03-04 12:12] VITALS: BP 124/80; PULSE 60; TEMP 36.4; O2SAT 98; Ht 170.2 cm; Wt 58.1 kg
[2017-03-04] MEDS ORDERED: ACETAMINOPHEN 325 MG TAB PO PRN (12:45)
[2017-03-04] MEDS ORDERED: IBUPROFEN 200 MG TAB PO PRN (12:45)
--- NOTE | 2017-03-04 13:36 | DIAGNOSTIC IMAGING REPORT ---
AP RADIOGRAPH OF THE THORACIC SPINE CLINICAL HISTORY: Back pain. COMPARISON STUDY: No previous studies for comparison. TECHNIQUE: AP radiograph of the thoracic spine was performed. The patient deferred further imaging due to pain. FINDINGS: Evaluation is suboptimal given lack of lateral projection. There is minimal rightward curvature of the mid to lower thoracic spine. Vertebral body heights are maintained. No fracture or suspicious lesion is identified on this exam. The disc spaces appear preserved with mild osteophytosis. IMPRESSION: 1. Suboptimal evaluation given lack of lateral projection. 2. No fracture identified on AP projection. Preserved disc spaces with mild multilevel osteophytosis. Electronically signed by: Homer Reynolds M.D. 03/04/2017 1:35 PM Dictated Date/Time: 03/04/2017 1:33 PM
--- NOTE | 2017-03-04 13:37 | DIAGNOSTIC IMAGING REPORT ---
AP RADIOGRAPH OF THE LUMBAR SPINE CLINICAL HISTORY: BACK PAIN COMPARISON STUDY: No previous studies for comparison. TECHNIQUE: An AP radiograph of the lumbar spine was obtained. The patient deferred further imaging given pain. FINDINGS: There is minimal leftward curvature of the lumbar spine. Vertebral body heights appear maintained on AP projection. Disc spaces are difficult to assess but grossly maintained. No fracture or osseous lesion is identified on this exam. There is a moderate amount of stool within the colon. The bowel gas pattern is normal. IMPRESSION: 1. Suboptimal evaluation of the lumbar spine given lack of lateral projection. 2. No fracture identified on AP projection. Apparent preserved disc spaces with minimal multilevel endplate osteophytosis. Electronically signed by: Homer Reynolds M.D. 03/04/2017 1:36 PM Dictated Date/Time: 03/04/2017 1:35 PM
--- NOTE | 2017-03-04 13:40 | History and Physical ---
History & Physical Date & Time of Service: Mar 04, 2017 at 13:36 Chief Complaint: Back Pain Primary Care Physician: No Doctor, Assigned History of Present Illness Source: patient 36 year old M who reports that 4 years ago, he suffered a back injury for which he did not immediately seek medical care, although reports he did complete some physical therapy, last seen a doctor for health maintenance 2 years ago previous to this hospital admission who presented to the ED on 03/03/17 for back pain and subsequently was transferred to the behavior unit for evaluation of suicidal ideations. Internal medicine hospitalist was consulted on AM of for medical evaluation of the back pain. Patient reports that at home he has been on Tylenol, ibuprofen, and tramadol for the back pain which is in the right posterior mid to lower back. Patient denies that pain is down the spine but has been along the muscles next to the spine. He reports history of being unable to sit up since the initial back injury 4 years ago because flexing forward causes more pain but is able to ambulate at home. Patient showed hospitalist doctor that he can transfer from a lying down position and move his legs to the floor, and while with his back still on the bed, patient uses his leg muscles to help hip stand up. Patient was asked to ambulate and was able to do this without obvious problems in his gait. Patient does report that walking on hard surfaces at home, he feels pain of his right back muscles but he denies leg joint or knee pain. On exam of the back, there was a lidocaine patch there which was placed in the ER, without obvious palpable tenderness through out the back. Patient is very thin, cachectic and but denies problem with his eating and denies vomiting. Patient reports that overnight his pain has been improved with the lidocaine patch, tramadol, and Flexeril. When asked about suicidal ideations, patient he reports that he feels down because of not being able to move around as well as he used to, the back pain, and problems with his sleep. Past Medical/Surgical History Medical Problems: (1) Depression Status: Resolved (2) No chronic diseases present Status: Chronic Family History FHx: cancer Social History Smoking Status: Former Smoker Occupational Status: unemployed Allergies Coded Allergies: Sulfa Drugs (Verified Allergy, Unknown, ., 03/03/17) Home Medications No Active Prescriptions or Reported Meds Review of Systems Constitutional: No fever Eyes: No worsening of vision ENT: No sore throat, No trouble swallowing Respiratory: No cough, No shortness of breath Cardiovascular: No chest pain Abdomen: No pain, No nausea, No vomiting, No diarrhea, No constipation Musculoskeletal: + problem reported (psoterior right sided mid to lower back pain), No swelling Genitourinary - Male: No dysuria Neurologic: + problem reported (reports inability to sit up but can walk, walking on hard surfaces causes pain to right back muscles), No numbness/ tingling Psychiatric: + depression symptoms (reports feeling depressed) Endocrine: No fatigue Hematologic / Lymphatic: No abnormal bleeding/bruising Integumentary: No rash, No itch Physical Exam Vital Signs Date Time Temp Pulse Resp B/P (MAP) Pulse Ox O2 Delivery O2 Flow Rate FiO2 03/04/17 12:12 36.4 60 16 124/80 98 Room Air General Appearance: no apparent distress, + thin Head: normocephalic, atraumatic Eyes: normal inspection, EOMI, sclerae normal ENT: normal ENT inspection, hearing grossly normal, pharynx normal Neck: no JVD, trachea midline Respiratory/Chest: chest non-tender, lungs clear, normal breath sounds, no respiratory distress, no accessory muscle use Cardiovascular: regular rate, rhythm, no edema, no JVD, no murmur, normal peripheral pulses Abdomen/GI: normal bowel sounds, non tender, soft, no organomegaly Back: normal inspection, no CVA tenderness, no muscle spasm, + pertinent finding (patient cannot flex to sit up) Extremities/Musculoskelatal: normal inspection, no calf tenderness, no pedal edema, non-tender, + pertinent finding (patient cannot flex to sit up but can transfer from bed to standing position and is ambulatory) Neurologic/Psych: sharebroker II-XII nml as tested, alert, oriented x 3 Skin: normal color, warm/dry, no rash Impression Assessment and Plan Back Pain -history of back pain is unusual, unclear as to why patient cannot, or would not , be able to sit up while lower leg muscle movements are intact and he can ambulate -history of back pain not suggestive of sciatica as patient reports that pain is of the right back muscles, referred pain from walking is also to the muscles -Lumbar spine X ray : No fracture identified on AP projection. Apparent preserved disc spaces with minimal multilevel endplate osteophytosis -Thoracic spine X ray: No fracture identified on AP projection. Preserved disc spaces with mild multilevel osteophytosis -patient had some discomfort and all the views ordered for lumbar and thoracic spine could not be completed for that reason -patient denies history of surgeries or metals in the body and was offered MRI study to look at soft tissue injury but patient states that he would be unable to lie down on MRI table due to back discomfort -patient has lidocaine patch on back, continue pain medications as ibuprofen and Flexeril -PT / OT to evaluate Depression / Suicidal Ideations -as per behavioral health/psychiatry who transferred patient to medical floor, patient does not need to be on 1 to 1 at this time -have requested that behavioral health/psychiatry continue to follow patient as consult while patient is under medical service -Initial hospital ED labs did not have electrolyte deficiencies, anemia, or leukocytosis -TSH normal 0.7 on admission, patient consents to labs including HIV test, B12 levels, folic acid, as well as routine labs such as CBC and Comprehensive metabolic panel DVT ppx: SCDs / ambulation Full Code Status Phone number [phone]: patient's mother Level of Care Med/Surg Advanced Directives Existing Living Will: No Existing Power of Brine Supervisor: No Resuscitation Status FULL RESUSCITATION VTE Prophylaxis VTE Risk Assessment Done? Y/N: Yes Risk Level: Moderate
[2017-03-04 14:26] LABS: BASO % 0.3 %; BASO ABS # 0.02 K/uL (0-0.2); EOS % 0.6 %; EOS ABS # 0.04 K/uL (0-0.5); HEMATOCRIT 43.9 % (42-52); HEMOGLOBIN 15.8 g/dL (14.0-18.0); IG# 0.01 K/uL (0.00-0.02); LYMPH % 23.5 %; LYMPH ABS # 1.68 K/uL (1.2-3.4); MEAN CELL VOLUME 89.6 fL (80-100); MEAN CORPUSCULAR HEMOGLOBIN 32.2 pg (25-34); MEAN PLATELET VOLUME 10.3 fL (7.4-10.4); MONO % 5.4 %; MONO ABS # 0.39 K/uL (0.11-0.59); NEUT % 70.1 %; NEUT ABS # 5.02 K/uL (1.4-6.5); PLATELET COUNT 230 K/uL (130-400); RED CELL DISTRIBUTION WIDTH CV 12.5 % (11.5-14.5); RED CELL DISTRIBUTION WIDTH SD 40.8 fL (36.4-46.3); WHITE BLOOD COUNT 7.16 K/uL (4.8-10.8)
[2017-03-04 14:49] LABS: ALBUMIN 3.9 gm/dl (3.4-5.0); CALCIUM 9.1 mg/dl (8.5-10.1); CREATININE 0.81 mg/dl (0.60-1.40); POTASSIUM 4.1 mmol/L (3.5-5.1); TOTAL PROTEIN 7.4 gm/dl (6.4-8.2)
[2017-03-04 15:23] VITALS: BP 102/65; PULSE 60; TEMP 36.7; O2SAT 95
[2017-03-04] MEDS ORDERED: DiphenhydrAMINE HCL 12.5MG/5 ML UDC PO PRN (16:15)
[2017-03-04] MEDS: CYCLOBENZAPRINE HCL 10 MG TAB PO SCH (20:46)
[2017-03-04] MEDS: BOOST VANILLA PO SCH (20:51)
[2017-03-04 22:54] VITALS: BP 95/60; PULSE 51; TEMP 36.5; O2SAT 96
[2017-03-04] MEDS: ZOLPIDEM TARTRATE 5 MG TAB PO PRN (23:38)
[2017-03-04 23:39] VITALS: BP 96/69; PULSE 59; O2SAT 96
[2017-03-05 07:09] VITALS: BP 102/64; PULSE 65; TEMP 36.5; O2SAT 98
[2017-03-05 07:40] LABS: HEMOGLOBIN A1C 4.8 % (4.5-5.6)
[2017-03-05] MEDS: BOOST VANILLA PO SCH (08:11)
[2017-03-05] MEDS: CYCLOBENZAPRINE HCL 10 MG TAB PO SCH ×2 (08:16→21:59)
[2017-03-05] MEDS: LIDODERM (LIDOCAINE) PATCH 5% TD SCH (09:35)
[2017-03-05] MEDS ORDERED: TRAMADOL HCL 50 MG TAB PO STA ×2 (11:35→17:03)
--- NOTE | 2017-03-05 12:07 | Progress Note ---
Internal Med Progress Note Date of Service: Mar 05, 2017. Provider Documentation: SUBJECTIVE: Patient seen at bedside today before and after was evaluated by occupational therapy. Patient has been reporting better sleep in recent 2 nights. Continues to have the back pain when awaking. Back pain also after he worked with occupational therapy OBJECTIVE: Exam: General- no acute distress, soft spoken, cachetic Eyes- EOMI Neck- trachea midline, no JVD Lungs- CTABL, no wheezing Heart- regular rate Back- tenderness on palpation on paraspinal muscles on right back Abdomen- soft, nontender, + bowel sounds Extremities- no edema Neuro- awake and alert ASSESSMENT & PLAN: Back Pain -history of back pain is unusual, unclear as to why patient cannot, or would not , be able to sit up while lower leg muscle movements are intact and he can ambulate -history of back pain not suggestive of sciatica as patient reports that pain is of the right back muscles, referred pain from walking is also to the muscles -Lumbar spine X ray : No fracture identified on AP projection. Apparent preserved disc spaces with minimal multilevel endplate osteophytosis -Thoracic spine X ray: No fracture identified on AP projection. Preserved disc spaces with mild multilevel osteophytosis -patient had some discomfort and all the views ordered for lumbar and thoracic spine could not be completed for that reason -patient denies history of surgeries or metals in the body and was offered MRI study to look at soft tissue injury but patient states that he would be unable to lie down on MRI table due to back discomfort -patient has lidocaine patch on back, continue pain medications as ibuprofen and Flexeril - As per occupation therapy 03/05/17 Transfer Ability Pt modifies bed transfer so that he is never sitting at edge of bed. Pt able to do so independently. Pt does tolerate sitting on toilet; pt reports this is due to not having the same pressure through his spine that there is when sitting on a chair. OT briefly provided instruction on good body/back mechanics (avoid bending, lifting, or twisting). Recommendations Pt presents at an independent/modified independent level for ADLs, functional mobility, and transfers. Pt has been dealing with chronic back pain for several years, and has modified tasks as needed. No OT needs identified. Recommend discharge to home when medically appropriate. -PT to evaluate Depression / Suicidal Ideations -as per behavioral health/psychiatry who transferred patient to medical floor, patient does not need to be on 1 to 1 at this time -302 Involuntary Commitment is in the patient's chart. 302 Expires on 03/08/17 @ 1915. Patient cannot leave AMA -have requested that behavioral health/psychiatry continue to follow patient as consult while patient is under medical service -Initial hospital ED labs did not have electrolyte deficiencies, anemia, or leukocytosis; normal TSH, B12 and folate. HIV negative. RPR pending DVT ppx: SCDs / ambulation Full Code Status Phone number [phone]: patient's mother Vital Signs: Date Time Temp Pulse Resp B/P (MAP) Pulse Ox O2 Delivery O2 Flow Rate FiO2 03/05/17 07:45 Room Air 03/05/17 07:09 36.5 65 18 102/64 (77) 98 Room Air 03/04/17 23:39 59 96/69 (78) 96 Room Air 03/04/17 23:35 Room Air 03/04/17 22:54 36.5 51 12 95/60 (72) 96 Room Air 03/04/17 15:35 Room Air 03/04/17 15:23 36.7 60 16 102/65 (77) 95 Room Air Lab Results: Results Past 24 Hours Test 03/04/17 14:08 Range/Units White Blood Count 7.16 4.8-10.8 K/uL Red Blood Count 4.90 4.7-6.1 M/uL Hemoglobin 15.8 14.0-18.0 g/dL Hematocrit 43.9 42-52 % Mean Corpuscular Volume 89.6 80-100 fL Mean Corpuscular Hemoglobin 32.2 25-34 pg Mean Corpuscular Hemoglobin Concent 36.0 32-36 g/dl Platelet Count 230 130-400 K/uL Mean Platelet Volume 10.3 7.4-10.4 fL Neutrophils (%) (Auto) 70.1 % Lymphocytes (%) (Auto) 23.5 % Monocytes (%) (Auto) 5.4 % Eosinophils (%) (Auto) 0.6 % Basophils (%) (Auto) 0.3 % Neutrophils # (Auto) 5.02 1.4-6.5 K/uL Lymphocytes # (Auto) 1.68 1.2-3.4 K/uL Monocytes # (Auto) 0.39 0.11-0.59 K/uL Eosinophils # (Auto) 0.04 0-0.5 K/uL Basophils # (Auto) 0.02 0-0.2 K/uL RDW Standard Deviation 40.8 36.4-46.3 fL RDW Coefficient of Variation 12.5 11.5-14.5 % Immature Granulocyte % (Auto) 0.1 % Immature Granulocyte # (Auto) 0.01 0.00-0.02 K/uL Sodium Level 139 136-145 mmol/L Potassium Level 4.1 3.5-5.1 mmol/L Chloride Level 102 98-107 mmol/L Carbon Dioxide Level 30 21-32 mmol/L Anion Gap 7.0 3-11 mmol/L Blood Urea Nitrogen 16 7-18 mg/dl Creatinine 0.81 0.60-1.40 mg/dl Est Creatinine Clear Calc Drug Dose 103.6 ml/min Estimated GFR () 132.5 Estimated GFR (Non- 114.3 BUN/Creatinine Ratio 20.1 10-20 Random Glucose 97 70-99 mg/dl Estimated Average Glucose 91 mg/dl Hemoglobin A1c 4.8 4.5-5.6 % Calcium Level 9.1 8.5-10.1 mg/dl Total Bilirubin 0.7 0.2-1 mg/dl Aspartate Amino Transf (AST/SGOT) 18 15-37 U/L Alanine Aminotransferase (ALT/SGPT) 26 12-78 U/L Alkaline Phosphatase 52 45-117 U/L Total Protein 7.4 6.4-8.2 gm/dl Albumin 3.9 3.4-5.0 gm/dl Globulin 3.5 2.5-4.0 gm/dl Albumin/Globulin Ratio 1.1 0.9-2 Vitamin B12 Level 702 211-911 pg/mL Folate 15.13 >5.38 ng/mL HIV (1&2) Ab and P24 Ag, 4th Gener NEG NEG
--- NOTE | 2017-03-05 13:22 | Psychiatric Consultation ---
Psychiatric Consultation Date of Service: Mar 04, 2017. Patient Name: BASIL GASTELUM Admit Date: 03/03/1800/27/18 Med Rec: [id number] Att Phy: Kallie Guerra MD Acct ID: [id number] Lori Phy: No Doctor, Assigned Date: 1980 Fam Phy: No Doctor, Assigned Age: 36 Location: [facility] Sex: M Room/Bed: [facility] CC: Charleen Lopez M.D. Hopkins, Jane E.,Kallie Elias MD *NOTICE TO RECEIVING DEMOCRAT/AGENCY This information is strictly Confidential and protected under [place] law. [place] law prohibits you from making any further disclosure of this information unless further disclosure is expressly permitted by the written consent of the person to whom it pertains or is authorized by law. A general authorization for the release of medical or other information is not sufficient for this purpose. Hospital accepts no responsibility if the information is made available to any other person, INCLUDING THE PATIENT. Psychiatric Consultation Date of Service: Mar 04, 2017. Below is the full H&P completed this AM after admission to the mental health unit. Recommendations remain for a trial of Effexor XR 37.5 mg daily titrating as tolerated to target mood and pain. He refused to consider today, but will see again tomorrow to discuss again. He is on a 302 that remains valid on the medical floor. We will continue to gather information toward the need for additional inpatient mental health treatment &/ or the need for a 303 commitment. History Date of Service Mar 04, 2017. Identifying Data Basil Gastelum is a 36-year-old male admitted involuntarily on Mar 03, 2017 at 20:22 who was brought to the emergency department by EMS with reports of severe pain that "going on for the last 4-1/2 years. He made suicidal statements saying that he would kill himself by walking into traffic because the pain was so severe. Chief Complaint "I haven't slept well for the last couple of weeks.". History of Present Illness The patient is a 36-year-old male with past psychiatric history including anorexia bulimia that was treated inpatient [place] as a teen. He is not currently in any psychiatric treatment beyond having therapy with Flavia Solis. He reports that for the half years ago he had an accident at work while lifting in which he injured his back. He underwent an MRI, not at our facility, but per patient report, there were no bony abnormalities and no problems with discs. He underwent physical therapy which she said "didn't work". He said that the pain continued but was bearable until about 1-1/2 years ago when it got worse. It worsened again several weeks ago after he attempted to engage in stretching exercises. He had been able to walk on soft surfaces, stretches back out but recently claims he is not able to walk on any hard surface, without having mid back pain that he describes as an "irritation" and described as burning and occasionally shooting. He has some neck pain as well but not always coincident with his back pain. He denies radiculopathy. There have been times in his life when walking has helped as long as he stayed on soft surfaces. Recently as his pain has worsened, he has essentially taken to his bed. He has made claims that he cannot sit at all, eats meals while laying on his back, can only eat food prepared by his mother with whom he lives. Yesterday, he admits that he had been desperate to find relief from the pain and therefore presented to the emergency department. He does admit to making statements about being suicidal and thinking about walking into traffic, but today denies that he has any intent to do that and denies that he wants to end his life, saying that his statements were an expression of desperation. He describes that he has been depressed since he was a teenager. At that time he described his depression as a "heaviness, darkness". He was tried on Paxil which she felt didn't help and was also in therapy. This also coincided with the time he was severely anorexic and bulimic and was hospitalized at an eating disorders clinic in [place]. He feels this depression is different, more "situational" and directly related to his level of pain. He reports that his appetite has been okay although has lost about 15 pounds over the last 5 years since returning to [place] to live with his mother. He reports difficult sleep, specifically with initial insomnia, at its worst only getting 2 hours of sleep per night. He denies chronic anxiety or worry. He denies any self- injurious behaviors. He denies ever having had any auditory or visual hallucinations. He denies any first rank symptoms of schizophrenia. His current BMI is 20.1 and denies any focus on his weight although acknowledges that he appears slender and his mother is concerned. He denies any discrete episodes of euphoric mood, sleeplessness or pleasure seeking behaviors that would be congruent with a bipolar disorder. Past Psychiatric History Current OP Treatment: therapist (Flavia Jang) Prior OP Treatment: therapist Prior Psych Hospitalizations: none Access to a Gun: No Suicide Attempts: No Past Medication Trials Paxil- didn't work Past Medical/Surgical History History of Concussion/Seizure: No (1) Chronic back pain Allergies Allergies: Coded Allergies: Sulfa Drugs (Verified Allergy, Unknown, ., 03/03/17) Home Medications No Active Prescriptions or Reported Meds Family History FHx: cancer History of Suicide: Yes (cousin) History of Substance Abuse: No Psychiatric History: No Alcohol Use Alcohol Use In Past 12 Months: No AUDIT Total Score: 0 Smoking Use Smoking Status: Former Smoker Substance History Denies Personal History Lives in: [place] with his mother Childhood: Raised by both parents until they . He has one older sister. He has 1- 1/2 years of college but did not obtain a degree. He has not been able to work in the last 5 years. 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 Education: started college Work History: Hasn't worked in 5 years Relationship History: ( for 7 or 8 years, having 2-3 years ago) Children: none Spiritual Affiliation: [employer] Legal History: none Psychological Trauma History: Denies Hx Traumatic Event Psychiatric H&P: ROS v4 Review of Systems Constitutional: denies no symptoms reported, denies see HPI, denies chills, denies diaphoresis, denies fever, denies malaise, denies weakness, denies other Eyes: denies: no symptoms, as stated in HPI, eye pain, tearing, itching, redness, discharge, double vision, visual changes, blurred vision, photophobia, other ENT: denies: no symptoms reported, see HPI, ear pain, ear discharge, loss of hearing, tinnitus, nasal pain, nasal congestion, rhinorrhea, epistaxis, sore throat, stidor, throat swelling, mouth pain, mouth swelling, dental pain, gum swelling, other Cardiovascular: denies: no symptoms reported, see HPI, chest pain, chest tightness, chest pressure, diaphoresis, palpitations, syncope, other Respiratory: denies: no symptoms reported, see HPI, cough, orthopnea, short of breath, stridor, wheezing, sputum production, cyanosis, LOAIZA, PND, other Gastrointestinal: denies no symptoms reported, denies see HPI, denies abdominal pain, denies constipation, denies diarrhea, denies nausea, denies vomiting, denies other Genitourinary - Male: denies: no symptoms, see HPI, rash, amenorrhea, penile itching, penile discharge, testicular pain, testicular swelling, impotence, other Musculoskeletal: other (mid back pain rated 4 out of 10, described as burning, occasionally shooting) Integumentary: denies no symptoms reported, denies see HPI, denies change in color, denies change in hair/nails, denies dryness, denies lesions, denies lumps , denies rash, denies other Neurologic: denies: no symptoms, see HPI, headache, numbness, paresthesias, pre -existing deficit, seizure, tingling, tremors, general weakness, tics, focal weakness, vertigo, lethargy, memory loss, dizziness, other Endocrine: denies: no symptoms, as stated in HPI, cold intolerance, heat intolerance, hair changes, goiter, polydipsia, polyuria, skin changes, other Hematologic / Lymphatic: denies: no symptoms, as stated in HPI, abnormal clotting, adenopathy, anemia, easy bleeding, easy bruising, gums bleeding, petechiae, other Psychiatric H&P: Exam v4 Examination Physical Examination Exam performed by Dr. lim in the emergency department yesterday has been reviewed and accepted his medical clearance for our unit Vital Signs Vital Signs Past 12 Hours Date Time Temp Pulse Resp B/P (MAP) Pulse Ox O2 Delivery O2 Flow Rate FiO2 03/04/17 06:40 36.3 16 121/84 03/03/17 21:44 37.0 58 18 122/72 Laboratory Results Last 24 Hours Test 03/03/17 14:25 03/03/17 15:00 03/03/17 16:03 Urine Color YELLOW Urine Appearance TURBID Urine pH 7.5 Urine Specific [place] 1.022 Urine Protein NEG Urine Glucose (UA) NEG Urine Ketones NEG Urine Occult Blood NEG Urine Nitrite NEG Urine Bilirubin NEG Urine Urobilinogen NEG Urine Leukocyte Esterase NEG Urine WBC (Auto) 1-5 /hpf Urine RBC (Auto) 0-4 /hpf Urine Hyaline Casts (Auto) 1-5 /lpf Urine Epithelial Cells (Auto) 5-10 /lpf Urine Bacteria (Auto) NEG Urine Opiates Screen NEG Urine Methadone, Qualitative NEG Urine Barbiturates NEG Urine Phencyclidine (PCP) Level NEG Ur Amphetamine/Methamphetamine NEG MDMA (Ecstasy) Screen NEG Urine Benzodiazepines Screen NEG Urine Cocaine Metabolite NEG Urine Marijuana (THC) NEG White Blood Count 6.86 K/uL Red Blood Count 4.74 M/uL Hemoglobin 15.6 g/dL Hematocrit 42.4 % Mean Corpuscular Volume 89.5 fL Mean Corpuscular Hemoglobin 32.9 pg Mean Corpuscular Hemoglobin Concent 36.8 g/dl Platelet Count 237 K/uL Mean Platelet Volume 10.3 fL Neutrophils (%) (Auto) 75.3 % Lymphocytes (%) (Auto) 19.1 % Monocytes (%) (Auto) 4.8 % Eosinophils (%) (Auto) 0.4 % Basophils (%) (Auto) 0.3 % Neutrophils # (Auto) 5.16 K/uL Lymphocytes # (Auto) 1.31 K/uL Monocytes # (Auto) 0.33 K/uL Eosinophils # (Auto) 0.03 K/uL Basophils # (Auto) 0.02 K/uL RDW Standard Deviation 40.5 fL RDW Coefficient of Variation 12.4 % Immature Granulocyte % (Auto) 0.1 % Immature Granulocyte # (Auto) 0.01 K/uL Sodium Level 137 mmol/L Potassium Level 3.9 mmol/L Chloride Level 102 mmol/L Carbon Dioxide Level 31 mmol/L Anion Gap 4.0 mmol/L Blood Urea Nitrogen 15 mg/dl Creatinine 0.74 mg/dl Est Creatinine Clear Calc Drug Dose 113.4 ml/min Estimated GFR () 137.5 Estimated GFR (Non- 118.7 BUN/Creatinine Ratio 19.7 Random Glucose 102 mg/dl Calcium Level 8.6 mg/dl Magnesium Level 2.4 mg/dl Total Bilirubin 0.5 mg/dl Aspartate Amino Transf (AST/SGOT) 16 U/L Alanine Aminotransferase (ALT/SGPT) 24 U/L Alkaline Phosphatase 53 U/L Total Protein 7.4 gm/dl Albumin 3.9 gm/dl Globulin 3.5 gm/dl Albumin/Globulin Ratio 1.1 Lipase 316 U/L Thyroid Stimulating Hormone (TSH) 0.744 uIu/ml Acetaminophen Level < 2 ug/ml Ethyl Alcohol mg/dL < 3.0 mg/dl Troponin I < 0.015 ng/ml Mental Examination During interview pt is: alert and oriented, cooperative Appearance: disheveled Eye contact is: good Motor behavior is: other (late on back in bed throughout interview, later seen in the hallway walking) Speech: normal in rate, rhythm & volume Affect: depressed, blunted, anxious Mood is: depressed Thought process: goal directed Thought content: reality based without delusions Suicidal thought are: present, Plan: denied, Intent: denied Homicidal thoughts are: denied Hallucinations: denies auditory, denies visual Cognition: memory grossly intact, attention grossly intact, language grossly intact Intelligence estimated to be: average Insight: impaired Judgement: impaired ( ) Psychiatric H&P: Impression v4 Impression / Recommendations Impression 36-year-old gentleman who presented to the emergency department because of severe back pain and suicidal thinking. He was 302. Today he admits to the suicidal statements but denies he has plan or intent, does not want to , and sees the Etrry expression of his desperation to get help. He reports pain that is limiting his ability to function and even at the time of my interview was unwilling to get out of bed. The first thing we will do is consult [facility] hospitalist's to work his back pain up to rule out an organic cause. If nothing organic, could be seen as a psychotic depression. I suggested we start venlafaxine to target both mood and pain which he is hesitant to do, not wanting to be on medications. He is willing for a full medical workup. I have spoken with Desiree Guerrero from the hospitalist service who is agreeable to coming to evaluate him in transferring to the medical floor if needed. He is here on a 302 but meets no criteria at this point for medications over objection. He would likely not meet criteria for a 303 as he is not metabolically deranged, not psychotic. Inventory Assets Strengths: Lives with mother Needs: To cooperate with full workup Risk Factors Assessment Male: Yes : Yes /single/: Yes Higher / Fall in social status: Yes Access to guns: No Health problems: Yes Mental Health Diagnoses: Yes Substance use disorders: No Previous attempt: No Previous psychiatric stay: No Smoker: No Protective Factors Assessment Yazidi beliefs: Yes : No Responsible for young children: No Employed: No Supportive family: Yes Recommendations (1) Unspecified mood [affective] disorder 03/04 -Recommend a trial of Effexor XR 37.5 mg titrating as tolerated which the patient is currently refusing - Will consult [facility] hospitalist for medical workup of pain to rule out an organic cause - Every 15 minute checks for safety - Encourage participation in group and individual counseling as able - The patient is here on a 302. Will continue to gather data toward the need for further inpatient care - Coordinate care with Flavia Jang (2) Chronic back pain 03/04 - [facility] <Electronically signed by Aruna Shelton > Signed: 03/04/17 0265
[2017-03-05] MEDS ORDERED: BOOST VANILLA PO SCH (14:45)
[2017-03-05 15:12] VITALS: BP 103/67; PULSE 72; TEMP 36.7; O2SAT 95
[2017-03-05] MEDS: KETOROLAC TROMETHAMINE 15 MG/ML VIAL IV PRN ×2 (20:00→20:16)
[2017-03-05 23:24] VITALS: BP 99/63; PULSE 69; TEMP 36.4; O2SAT 96
[2017-03-06] MEDS: ZOLPIDEM TARTRATE 5 MG TAB PO PRN ×2 (00:05→23:59)
[2017-03-06 07:30] VITALS: BP 101/68; PULSE 69; TEMP 36.6; O2SAT 97
[2017-03-06 07:40] VITALS: O2SAT 97
[2017-03-06] MEDS: CYCLOBENZAPRINE HCL 10 MG TAB PO SCH (09:06)
[2017-03-06] MEDS: LIDODERM (LIDOCAINE) PATCH 5% TD SCH (09:06)
[2017-03-06] MEDS ORDERED: METHYLPREDNISOLONE 4MG TAB, 6 DAY TAPER PO SCH (09:30)
--- NOTE | 2017-03-06 10:02 | Psychiatric Progress Notes ---
Psychiatric Progress Note Date of Service Mar 06, 2017. Notes 36-year-old single white male with a history of depression and chronic pain who presented to the emergency room with an exacerbation of his pain and was initially admitted to the behavioral health unit on an involuntary 302 commitment after he expressed suicidal thoughts. He was quickly transferred to the medical service for workup of his back pain, and is being seen today in follow-up. CC: "A lot better." I reviewed the patient's record and met with him and his mother. He states that his mood has improved since admission, and he has not had a recurrence of suicidal thoughts since he was in the emergency room. He continues to state that he only experiences low mood when his pain flares, and that his suicidal thoughts occurred in the context of not sleeping due to his pain, and he had no intent to act on those thoughts. He is feeling more hopeful for the future now that he has met with pain management, and both he and his mother are hoping that he will have outpatient follow-up with a pain specialist. He understands that his pain is muscular, that his x-rays were negative, and is hopeful that the steroid and muscle relaxer medications that were started will be beneficial. He sees his current mood as distinctly different from his past episode of depression, noting that his mood is good when he is not in pain, and only worsens when his pain increases. When he was initially admitted to our unit, a trial of venlafaxine XR was recommended, but he initially stated he wasn 't interested in taking medication. However after much discussion with him and his mother today, he states he would like to try the antidepressant. He is willing to follow-up with outpatient therapy and psychiatry, but prefers to have in-home services whenever possible, as he has significant difficulty getting out of the house due to his chronic back pain. He clarifies that he was never actually in therapy with Roya Jang, but was just talking with her as they know her socially. He states he is no longer demanding to leave the hospital, and says he was just upset yesterday because he was in pain and had not had a workup that he was expecting. He and his mother have worked on a safety plan and were able to review it, including a list of people that he can call (4-5 friends, reservations sales agent, mother), the crisis line, calling 911 or coming to the emergency room. They confirmed that there are no guns in the home. His mother denies acute safety concerns with taking him home, but is concerned about long-term outpatient treatment, and notes that he often says he cannot go to appointments because it causes pain for him to stand, sit, or walk on hard floors. Apparently he spends most of his time at home lying down on an air mattress. They are not sure if he will be referred for physical therapy. ROS: Back pain is improved, no GI or respiratory symptoms. Thin white male appearing older than his stated age. He is ill appearing, pale , and lacks muscle tone; full pollock, lying flat on his back in bed in no acute distress. Dressed in a hospital gown, with limited grooming. Calm and cooperative. Good eye contact and no abnormal movements. Speech is normal rate and tone, soft volume. Mood is "better," and affect is thymic, stable and congruent. Thoughts are linear, logical and goal directed. The patient denied suicidal and homicidal ideation and was able to review his safety plan. No paranoia, delusions, or hallucinations, and did not appear to be responding to internal stimuli. Cognition was grossly intact. Alert and oriented to person, place and time. Intelligence is consistent with level of education. Insight and and judgment are fair. Assessment: Padilla has a remote history of severe depression, and has had an exacerbation of depressive symptoms in the context of acute on chronic back pain. Both he and his mother state that his current mood issues are distinctly different from his past major depression in that his mood is good when he is not in pain, but quickly deteriorates when his pain flares. From their description, it sounds as if this chronic pain has progressed unchecked for years, and that he is becoming progressively less mobile and functional and more isolative because of it. He initially was resistant to being labeled as currently depressed or taking an antidepressant, but after extensive discussion of the interplay between mood and chronic pain and encouragement from his mother , he was willing for a trial of venlafaxine XR and follow-up with a psychiatrist. He is also willing to follow-up with a therapist, but as he has significant difficulty getting out of the house to attend appointments due to his pain, requested a referral for a mobile therapist. He would also benefit from follow-up with a pain specialist and some sort of program to encourage an increase his physical activity. It do not think that he is experiencing any psychotic symptoms, and do not feel that he requires any further inpatient psychiatric treatment. He has not had a recurrence of suicidal thoughts since admission, is able to review a safety plan, and lives with his mother who denies acute safety concerns. Their primary concern is that when his pain flares, he can feel overwhelmed and hopeless, but they have worked on a safety plan and additional supports will be put in place prior to discharge. Diagnosis: Major depressive disorder, recurrent, current episode moderate Chronic pain 1. Depression: Patient is agreeable to a trial of venlafaxine XR, so will start 37.5 mg daily. Reviewed the risks, benefits, and common side effects, and the need to take it daily for one to 2 months to have an adequate trial. He will need a prescription at discharge. The liaison nurse will make referrals for outpatient psychiatric care and mobile psych rehabilitation. He is psychiatrically stable for discharge, and can be released when he is medically cleared. 2. Chronic pain: Treatment per primary team/pain management. Vital Signs Past 12 Hours Date Time Temp Pulse Resp B/P (MAP) Pulse Ox O2 Delivery O2 Flow Rate FiO2 03/06/17 07:30 36.6 69 18 101/68 (79) 97 Room Air 03/05/17 23:24 36.4 69 16 99/63 (75) 96 Room Air Current Inpatient Medications Medications (Trade) Dose Ordered Sig/Ching Route Start Time Stop Time Status Last Admin Dose Admin Ibuprofen (Advil Tab) 400 mg TID PRN PO 03/04/17 12:45 04/03/17 12:44 Acetaminophen (Tylenol Tab) 650 mg Q4H PRN PO 03/04/17 12:45 04/03/17 12:44 03/04/17 15:31 650 MG Diphenhydramine HCl (Benadryl Syrup) 12.5 mg HS PRN PO 03/04/17 16:15 04/03/17 16:14 03/04/17 20:46 12.5 MG Zolpidem Tartrate (Ambien Tab) 5 mg HS PRN PO 03/04/17 23:15 04/03/17 23:14 03/06/17 00:05 5 MG Lidocaine (Lidoderm Patch 5%) 1 patch QAM TD 03/05/17 09:00 2/28/18 08:59 03/06/17 09:06 1 PATCH Miscellaneous (Remove Lidoderm Patch) 1 ea DAILY@21 N/A 03/05/17 21:00 04/04/17 20:59 Ketorolac Tromethamine (Toradol Inj) 15 mg Q6H PRN IV 03/05/17 17:15 03/10/17 17:14 03/05/17 20:16 15 MG Methylprednisolone (Medrol Dosepak 4mg Tab, 6 Day Taper) 1 ea UD PO 03/06/17 09:30 04/05/17 09:29 UNV Baclofen (Lioresal Tab) 10 mg TID PO 03/06/17 09:30 04/05/17 09:29 UNV
[2017-03-06] MEDS ORDERED: VENLAFAXINE HCL XR 37.5 MG CAPXR PO ONE (10:15)
--- NOTE | 2017-03-06 11:51 | Pain Management Consultation ---
Pain Management Consultation Date of Consultation Mar 06, 2017. Reason for Consultation Back pain Pain Location 1 - History This is a 36-year-old white male that is being seen in consultation for back pain has been ongoing for 4 years. Patient states that the pain started 4 years ago when he was twisting he felt a sudden popping sensation along the right upper lumbar region. Patient describes a tightness and aching sensation. No radicular pain. Patient states that he did try physical therapy for a few weeks but he felt like he was being pushed beyond what he could do and it worsened his pain so he discontinued going. He felt like stretching did decrease his pain. Pain is currently rated 5/10. He has been trying Tylenol and ibuprofen which was not providing any relief. Patient states that Toradol is not effective. He is unsure about the effectiveness of Flexeril. He states that tramadol did provide moderate pain relief. He has been offered a lumbar MRI has refused as he states that he cannot lay supine for the length of the MRI scan. He also states that he is unable to sit up in a chair due to the pain. Patient reportedly lays in bed the majority of the day for the last 4 years. Patient denies any radicular symptoms, leg weakness, bowel/bladder incontinence, saddle anesthesia, foot drop, falls. Case discussed with Dr. La Real Past Medical/Surgical History (1) Chronic back pain (2) Depression Family History FHx: cancer Social / Work History Smokeless Tobacco Use: No Drug Use: none Marital Status: single Housing Status: lives with family Occupation: unemployed Allergies Coded Allergies: Sulfa Drugs (Verified Allergy, Unknown, ., 03/03/17) Medications Current Inpatient Medications Medications (Trade) Dose Ordered Sig/Ching Route Start Time Stop Time Status Last Admin Dose Admin Ibuprofen (Advil Tab) 400 mg TID PRN PO 03/04/17 12:45 04/03/17 12:44 Acetaminophen (Tylenol Tab) 650 mg Q4H PRN PO 03/04/17 12:45 04/03/17 12:44 03/04/17 15:31 650 MG Diphenhydramine HCl (Benadryl Syrup) 12.5 mg HS PRN PO 03/04/17 16:15 04/03/17 16:14 03/04/17 20:46 12.5 MG Zolpidem Tartrate (Ambien Tab) 5 mg HS PRN PO 03/04/17 23:15 04/03/17 23:14 03/06/17 00:05 5 MG Lidocaine (Lidoderm Patch 5%) 1 patch QAM TD 03/05/17 09:00 04/04/17 08:59 03/06/17 09:06 1 PATCH Miscellaneous (Remove Lidoderm Patch) 1 ea DAILY@21 N/A 03/05/17 21:00 04/04/17 20:59 Ketorolac Tromethamine (Toradol Inj) 15 mg Q6H PRN IV 03/05/17 17:15 03/10/17 17:14 03/05/17 20:16 15 MG Baclofen (Lioresal Tab) 10 mg TID PO 03/06/17 10:15 04/05/17 10:14 Venlafaxine HCl (effeXOR EXTENDED REL CAP) 37.5 mg QAM PO 03/07/17 09:00 04/06/17 08:59 Methylprednisolone (Medrol Tab) 8 mg 07,21 PO 03/06/17 10:30 03/06/17 21:01 Methylprednisolone (Medrol Tab) 4 mg 13,18 PO 03/06/17 13:00 03/06/17 18:01 Methylprednisolone (Medrol Tab) 4 mg 07,13,18 PO 03/07/17 07:00 03/07/17 18:01 Methylprednisolone (Medrol Tab) 8 mg HS PO 03/07/17 21:00 03/07/17 21:01 Methylprednisolone (Medrol Tab) 4 mg 07,13,18,21 PO 03/08/17 07:00 03/08/17 21:01 Methylprednisolone (Medrol Tab) 4 mg 07,13,21 PO 03/09/17 07:00 03/09/17 21:01 Methylprednisolone (Medrol Tab) 4 mg 07,21 PO 03/10/17 07:00 03/10/17 21:01 Methylprednisolone (Medrol Tab) 4 mg 07 PO 03/11/17 07:00 03/11/17 07:01 Review of Systems Denies any constitutional, cardiac, pulmonary, neurological, GI, , extremity, endocrine, neuro, ENT, dermatological, or musculoskeletal complaints other than stated in HPI Physical Exam Height & Weight: Height 5 feet, 7.00 inches. Weight 58.100 (Kilograms) 128 (Pounds) Last Vital Signs Documentation Date Time Temp Pulse Resp B/P (MAP) Pulse Ox O2 Delivery O2 Flow Rate FiO2 03/06/17 07:30 36.6 69 18 101/68 (79) 97 Room Air Exam: GENERAL: Mr. Hanna is a 36 y/o thin appearing white male. Speech and cognition is intact. Depressed affect. He is accompanied by his mother. Patient does not appear in any distress laying supine in hospital bed. BACK: There is no midline, SI joint, or facet joint tenderness. No lumbosacral tenderness. Pain is focal at the right paravertebral musculature with spasm over the T12-L1 facet joint. LOWER EXTREMITIES: Strength of the legs is 5/5 throughout. NEURO: Awake, alert, and oriented x 3. Distal sensation of lower legs intact and equal bilaterally. For examination, he states that the pain is too bad to sit up and would prefer rolling on his side. SKIN: There is ecchymosis at the right paravertebral musculature. Laboratory Laboratory Results (Last CBC): 03/04/17 14:08 Red Blood Count 4.90, Mean Corpuscular Volume 89.6, Mean Corpuscular Hemoglobin 32.2, Mean Corpuscular Hemoglobin Concent 36.0, Mean Platelet Volume 10.3, Neutrophils (%) (Auto) 70.1, Lymphocytes (%) (Auto) 23.5, Monocytes (%) (Auto) 5.4, Eosinophils (%) (Auto) 0.6, Basophils (%) (Auto) 0.3, Neutrophils # (Auto) 5.02, Lymphocytes # (Auto) 1.68, Monocytes # (Auto) 0.39, Eosinophils # (Auto) 0.04, Basophils # (Auto) 0.02 Imaging Radiology Findings AP RADIOGRAPH OF THE THORACIC SPINE CLINICAL HISTORY: Back pain. COMPARISON STUDY: No previous studies for comparison. TECHNIQUE: AP radiograph of the thoracic spine was performed. The patient deferred further imaging due to pain. FINDINGS: Evaluation is suboptimal given lack of lateral projection. There is minimal rightward curvature of the mid to lower thoracic spine. Vertebral body heights are maintained. No fracture or suspicious lesion is identified on this exam. The disc spaces appear preserved with mild osteophytosis. IMPRESSION: 1. Suboptimal evaluation given lack of lateral projection. 2. No fracture identified on AP projection. Preserved disc spaces with mild multilevel osteophytosis. Electronically signed by: Homer Reynolds M.D. 03/04/2017 1:35 PM Dictated Date/Time: 03/04/2017 1:33 PM AP RADIOGRAPH OF THE LUMBAR SPINE CLINICAL HISTORY: BACK PAIN COMPARISON STUDY: No previous studies for comparison. TECHNIQUE: An AP radiograph of the lumbar spine was obtained. The patient deferred further imaging given pain. FINDINGS: There is minimal leftward curvature of the lumbar spine. Vertebral body heights appear maintained on AP projection. Disc spaces are difficult to assess but grossly maintained. No fracture or osseous lesion is identified on this exam. There is a moderate amount of stool within the colon. The bowel gas pattern is normal. IMPRESSION: 1. Suboptimal evaluation of the lumbar spine given lack of lateral projection. 2. No fracture identified on AP projection. Apparent preserved disc spaces with minimal multilevel endplate osteophytosis. Electronically signed by: Homer Reynolds M.D. 03/04/2017 1:36 PM Dictated Date/Time: 03/04/2017 1:35 PM [place] Drug Monitoring Program Search Results: patient reviewed within database, no issues identified Assessment 1. Myofascial pain 2. Depressive disorder Recommendations 1. Will initiate the patient on a Medrol Dose Benji. 2. Switch muscle relaxer from Flexeril to Baclofen. 3. Continue stretches - recommend outpatient physical therapy. 4. Continue Tylenol, Ibuprofen, and Lidocaine patches. 5. He has refused a lumbar MRI as he cannot lay supine for the length of the MRI.
[2017-03-06] MEDS: BACLOFEN 10 MG TAB PO SCH ×3 (11:59→21:14)
[2017-03-06] MEDS: METHYLPREDNISOLONE 4 MG TAB PO SCH ×4 (12:00→20:45)
[2017-03-06 15:19] VITALS: BP 99/53; PULSE 72; TEMP 36.7; O2SAT 95
[2017-03-06 15:20] VITALS: O2SAT 95
--- NOTE | 2017-03-06 18:13 | Progress Note ---
Internal Med Progress Note Date of Service: Mar 06, 2017. Provider Documentation: SUBJECTIVE: still has significant back pain not able to ambulate afebrile eating ok no sob OBJECTIVE: Vital Signs-as noted below Exam: General-alert and oriented. Not in distress ENT-Normal hearing Neck-no neck masses Lungs-cta b/l no wheezing or crackles Heart-S1 and S2 heard regular rate and rhythm, no murmurs Abdomen-soft bowel sounds present no tenderness no distension Extremities-no edema no erythema Neuro-alert and awake moves extremities Lab data as noted below. ASSESSMENT & PLAN: Back Pain chronic since last 4years says he over did in PT and got it flared up xrays unremarkable refuses MRI saying he cannot lay down seen by pain management- myofascial pain and started on Medrol dose pack. changed Flexeril to baclofen will monitor Depression / Suicidal Ideations as per behavioral health/psychiatry who transferred patient to medical floor, patient does not need to be on 1 to 1 at this time 302 Involuntary Commitment is in the patient's chart. 302 Expires on 03/08/17 @ 1915. Patient cannot leave AMA normal TSH, B12 and folate. HIV negative. RPR pending today psychiatry started patient on Effexor er and ok for discharge and followup as out patient DVT ppx: SCDs / ambulation Full Code Status DISPOSITION to be determined Vital Signs: Date Time Temp Pulse Resp B/P (MAP) Pulse Ox O2 Delivery O2 Flow Rate FiO2 03/06/17 15:20 95 Room Air 03/06/17 15:19 36.7 72 16 99/53 (68) 95 Room Air 03/06/17 07:40 97 Room Air 03/06/17 07:30 36.6 69 18 101/68 (79) 97 Room Air 03/05/17 23:24 36.4 69 16 99/63 (75) 96 Room Air 03/05/17 19:45 Room Air Lab Results: Results Past 24 Hours Test 03/06/17 05:31 Range/Units C-Reactive Protein < 0.29 0-0.29 mg/dl Prealbumin 26.8 20-40 mg/dl 25-Hydroxy Vitamin D Total 27.8 30-100 ng/ml
[2017-03-06] MEDS ORDERED: TRAMADOL HCL 50 MG TAB PO ONE (18:15)
[2017-03-06 23:00] VITALS: BP 105/63; PULSE 82; TEMP 36.3; O2SAT 97
[2017-03-06 23:45] VITALS: O2SAT 97
[2017-03-07 07:18] VITALS: BP 106/65; PULSE 72; TEMP 36.8; O2SAT 96
[2017-03-07] MEDS: METHYLPREDNISOLONE 4 MG TAB PO SCH ×2 (07:20→13:21)
[2017-03-07] MEDS ORDERED: VENLAFAXINE HCL XR 37.5 MG CAPXR PO SCH (09:00)
[2017-03-07] MEDS: LIDODERM (LIDOCAINE) PATCH 5% TD SCH (09:41)
[2017-03-07] MEDS: BACLOFEN 10 MG TAB PO SCH ×2 (10:36→13:21)
[2017-03-07] MEDS ORDERED: LRS10 PO (14:53)
[2017-03-07] MEDS ORDERED: METH4TAB31 PO (14:53)
[2017-03-07] MEDS ORDERED: ZOLP5TAB PO (14:53)
[2017-03-07] MEDS ORDERED: EFFSR375 PO (14:53)
[2017-03-07] MEDS ORDERED: TRAM-10 PO (14:53)
--- NOTE | 2017-03-07 15:24 | Discharge Instructions ---
Discharge Instructions Date of Service Mar 07, 2017. Admission Reason for Admission: Back Pain Discharge Discharge Diagnosis / Problem: severe back pain Discharge Goals Goal(s): Decrease discomfort Activity Recommendations Activity Limitations: resume your previous activity . Instructions / Follow-Up Instructions / Follow-Up FOLLOWUP WITH FAMILY DOCTOR IN ONE WEEK OUT PATIENT PHYSICAL THERAPY FOLLOWUP WITH PAIN MANAGEMENT FOLLOWUP WITH PSYCHIATRY IN 2-3WEEKS OR SCHEDULED Current Hospital Diet Patient's current hospital diet: Regular Diet Discharge Diet Recommended Diet: Regular Diet Pending Studies Studies pending at discharge: no Laboratory Results Hemoglobin A1c Test 03/04/17 14:08 Range/Units Estimated Average Glucose 91 mg/dl Hemoglobin A1c 4.8 4.5-5.6 % Medical Emergencies . Who to Call and When: Medical Emergencies: If at any time you feel your situation is an emergency, please call 911 immediately. . Non-Emergent Contact Non-Emergency issues call your: Primary Care Provider . . "Provider Documentation" section prepared by Frank Brower. . VTE Core Measure Inpt VTE Proph given/why not?: SCD's
[2017-03-07 15:55] VITALS: BP 111/69; PULSE 82; TEMP 36.8; O2SAT 95
[2017-03-07 16:19] VITALS: BP 111/69; PULSE 82; TEMP 36.8; O2SAT 95
--- NOTE | 2017-03-07 17:55 | Progress Note ---
Internal Med Progress Note Date of Service: Mar 07, 2017. Provider Documentation: SUBJECTIVE: still has significant back pain but ambulated in PT afebrile no other complaints ok to go home OBJECTIVE: Vital Signs-as noted below Exam: General-alert and oriented. Not in distress ENT-Normal hearing Neck-no neck masses Lungs-cta b/l no wheezing or crackles Heart-S1 and S2 heard regular rate and rhythm, no murmurs Abdomen-soft bowel sounds present no tenderness no distension Extremities-no edema no erythema Neuro-alert and awake moves extremities Lab data as noted below. ASSESSMENT & PLAN: Back Pain chronic since last 4years says he over did in PT and got it flared up xrays unremarkable refuses MRI saying he cannot lay down seen by pain management- myofascial pain and started on Medrol dose pack. changed Flexeril to baclofen Did ok in PT and ok for discharge and requests tramadol for pain d/c home to followup with pcp and pain management Depression / Suicidal Ideations as per behavioral health/psychiatry who transferred patient to medical floor, patient does not need to be on 1 to 1 at this time 302 Involuntary Commitment is in the patient's chart. 302 Expires on 03/08/17 @ 1915. Patient cannot leave AMA normal TSH, B12 and folate. HIV negative. RPR Negative today psychiatry started patient on Effexor er and ok for discharge and followup as out patient DVT ppx: SCDs / ambulation Full Code Status DISPOSITION discharged home Vital Signs: Date Time Temp Pulse Resp B/P (MAP) Pulse Ox O2 Delivery O2 Flow Rate FiO2 03/07/17 16:19 36.8 82 18 95 Room Air 03/07/17 15:55 36.8 82 18 111/69 (83) 95 Room Air 03/07/17 08:50 Room Air 03/07/17 07:18 36.8 72 16 106/65 (79) 96 Room Air 03/06/17 23:45 97 Room Air 03/06/17 23:00 36.3 82 16 105/63 (77) 97 Room Air
--- NOTE | 2017-03-07 18:47 | Discharge Summary ---
Discharge Summary Date of Service Mar 07, 2017. Discharge Summary Admission Date: Mar 04, 2017 at 11:50 Discharge Date: Mar 07, 2017 Discharge Disposition: Home Principal Diagnosis: SEVERE BACK PAIN Secondary Diagnoses/Problems: 1) Depression Status: Resolved Procedures: SPINE XRAY: 1. Suboptimal evaluation of the lumbar spine given lack of lateral projection. 2. No fracture identified on AP projection. Apparent preserved disc spaces with minimal multilevel endplate osteophytosis. Consultations: PAIN MANAGEMENT PSYCHIATRY Medication Reconciliation New Medications: Methylprednisolone (Medrol) 4 Mg Tab 1 PKT PO UD for 6 Days, #1 PKT Tramadol (Ultram) 50 Mg Tab 50 MG PO Q8H PRN for Pain, #14 TAB Zolpidem Tartrate (Ambien) 5 Mg Tab 5 MG PO HS PRN for Insomnia, #7 TAB Baclofen (Baclofen) 10 Mg Tab 10 MG PO TID for 15 Days, #45 TAB Venlafaxine HCl (Venlafaxine HCl ER) 37.5 Mg Capcr 37.5 MG PO QAM for 30 Days, 2 Refills Admission Information HPI (per Admitting provider): 36 year old M who reports that 4 years ago, he suffered a back injury for which he did not immediately seek medical care, although reports he did complete some physical therapy, last seen a doctor for health maintenance 2 years ago previous to this hospital admission who presented to the ED on 03/03/17 for back pain and subsequently was transferred to the behavior unit for evaluation of suicidal ideations. Internal medicine hospitalist was consulted on AM of for medical evaluation of the back pain. Patient reports that at home he has been on Tylenol, ibuprofen, and tramadol for the back pain which is in the right posterior mid to lower back. Patient denies that pain is down the spine but has been along the muscles next to the spine. He reports history of being unable to sit up since the initial back injury 4 years ago because flexing forward causes more pain but is able to ambulate at home. Patient showed hospitalist doctor that he can transfer from a lying down position and move his legs to the floor, and while with his back still on the bed, patient uses his leg muscles to help hip stand up. Patient was asked to ambulate and was able to do this without obvious problems in his gait. Patient does report that walking on hard surfaces at home, he feels pain of his right back muscles but he denies leg joint or knee pain. On exam of the back, there was a lidocaine patch there which was placed in the ER, without obvious palpable tenderness through out the back. Patient is very thin, cachectic and but denies problem with his eating and denies vomiting. Patient reports that overnight his pain has been improved with the lidocaine patch, tramadol, and Flexeril. When asked about suicidal ideations, patient he reports that he feels down because of not being able to move around as well as he used to, the back pain, and problems with his sleep. Physical Exam (per Admitting): General Appearance: no apparent distress, + thin Head: normocephalic, atraumatic Eyes: normal inspection, EOMI, sclerae normal ENT: normal ENT inspection, hearing grossly normal, pharynx normal Neck: no JVD, trachea midline Respiratory/Chest: chest non-tender, lungs clear, normal breath sounds, no respiratory distress, no accessory muscle use Cardiovascular: regular rate, rhythm, no edema, no JVD, no murmur, normal peripheral pulses Abdomen/GI: normal bowel sounds, non tender, soft, no organomegaly Back: normal inspection, no CVA tenderness, no muscle spasm, + pertinent finding (patient cannot flex to sit up) Extremities/Musculoskelatal: normal inspection, no calf tenderness, no pedal edema, non-tender, + pertinent finding (patient cannot flex to sit up but can transfer from bed to standing position and is ambulatory) Neurologic/Psych: client leader II-XII nml as tested, alert, oriented x 3 Skin: normal color, warm/dry, no rash Hospital Course Back Pain chronic since last 4years says he over did in PT and got it flared up xrays unremarkable refuses MRI saying he cannot lay down seen by pain management- myofascial pain and started on Medrol dose pack. changed Flexeril to baclofen Did ok in PT and ok for discharge and requests tramadol for pain d/c home to followup with pcp and pain management Depression / Suicidal Ideations as per behavioral health/psychiatry who transferred patient to medical floor, patient does not need to be on 1 to 1 at this time 302 Involuntary Commitment is in the patient's chart. 302 Expires on 03/08/17 @ 1915. Patient cannot leave AMA normal TSH, B12 and folate. HIV negative. RPR Negative today psychiatry started patient on Effexor er and ok for discharge and followup as out patient DVT ppx: SCDs / ambulation Full Code Status DISPOSITION discharged home Total time spent on discharge = 35MINUTES This includes examination of the patient, discharge planning, medication reconciliation, and communication with other providers. Discharge Instructions Please take this sheet to every appointment for the next month Discharge Instructions Date of Service Mar 07, 2017. Admission Reason for Admission: Back Pain Discharge Discharge Diagnosis / Problem: severe back pain Discharge Goals Goal(s): Decrease discomfort Activity Recommendations Activity Limitations: resume your previous activity . Instructions / Follow-Up Instructions / Follow-Up FOLLOWUP WITH FAMILY DOCTOR IN ONE WEEK OUT PATIENT PHYSICAL THERAPY FOLLOWUP WITH PAIN MANAGEMENT FOLLOWUP WITH PSYCHIATRY IN 2-3WEEKS OR SCHEDULED Current Hospital Diet Patient's current hospital diet: Regular Diet Discharge Diet Recommended Diet: Regular Diet Pending Studies Studies pending at discharge: no Laboratory Results Hemoglobin A1c Test 03/04/17 14:08 Range/Units Estimated Average Glucose 91 mg/dl Hemoglobin A1c 4.8 4.5-5.6 % Medical Emergencies . Who to Call and When: Medical Emergencies: If at any time you feel your situation is an emergency, please call 911 immediately. . Non-Emergent Contact Non-Emergency issues call your: Primary Care Provider . . "Provider Documentation" section prepared by Frank Brower. . VTE Core Measure Inpt VTE Proph given/why not?: SCD's
[2017-03-07] MEDS ORDERED: METHYLPREDNISOLONE 4 MG TAB PO SCH (21:00)
[2017-03-08] MEDS ORDERED: METHYLPREDNISOLONE 4 MG TAB PO SCH (07:00)
[2017-03-09] MEDS ORDERED: METHYLPREDNISOLONE 4 MG TAB PO SCH (07:00)
[2017-03-10] MEDS ORDERED: METHYLPREDNISOLONE 4 MG TAB PO SCH (07:00)
[2017-03-11] MEDS ORDERED: METHYLPREDNISOLONE 4 MG TAB PO SCH (07:00)
== END 2017-03-07 16:45 | disposition home health service (06) | DRG 92 ==
LOC: C.MSN 11:50
PROVIDERS: ADMIT Hospitalist; ATTEND Internal Medicine
DX: G89.29 Other chronic pain (principal); F33.1 Major depressive disorder, recurrent, moderate; M79.1 Myalgia; M54.9 Dorsalgia, unspecified; Z86.59 Personal history of other mental and behavioral disorders; Z87.891 Personal history of nicotine dependence; Z81.8 Family history of other mental and behavioral disorders

== ENCOUNTER 2017-03-20 08:22 | Emergency (ER) | payer OTHER ==
[~2017-03-20] VITALS: Ht 170.2 cm; Wt 51.0 kg
[~2017-03-20 08:22] MED LIST changes: +LRS10 PO; -MULT-506 PO; +TRAM-10 PO; +VENL-57 PO
[2017-03-20 08:24] VITALS: Ht 170.2 cm; Wt 51.0 kg
--- NOTE | 2017-03-20 10:55 | DIAGNOSTIC IMAGING REPORT ---
RETROPERITONEAL COMPLETE CLINICAL HISTORY: Bilateral testicular pain. COMPARISON STUDY: No previous studies for comparison. FINDINGS: The right testis measures 9.8 x 5.7 x 4.6 cm and the left measures 9.2 x 5 x 4.9 cm. There is no hydronephrosis. Renal echogenicity is at the upper limits of normal. No calculi or masses are identified. Both ureteral jets were identified. There is possible debris within the bladder. IMPRESSION: 1. No hydronephrosis. 2. Possible debris within the gallbladder. This could be correlated with urinalysis. Electronically signed by: Homer Reynolds M.D. 03/20/2017 10:53 AM Dictated Date/Time: 03/20/2017 10:51 AM
--- NOTE | 2017-03-20 11:01 | DIAGNOSTIC IMAGING REPORT ---
(TESTICULAR) SCROTUM-CONT HISTORY: Pain Bilateral testicular pain COMPARISON: None. FINDINGS: Right testis: Maximum dimension 4.1 cm. Normal vascular flow. Left testis: Maximum dimension 4.2 cm. Normal vascular flow. Small epididymal cyst. IMPRESSION: Normal testicular ultrasound. Small epididymal cyst on the left. Otherwise negative study. The above report was generated using voice recognition software. It may contain grammatical, syntax or spelling errors. Electronically signed by: Aquiles Guerrero M.D. 03/20/2017 11:00 AM Dictated Date/Time: 03/20/2017 10:51 AM
[2017-03-20] MEDS ORDERED: DOXY100C PO (11:59)
[2017-03-20 12:17] VITALS: BP 127/81; PULSE 69; TEMP 36.4; O2SAT 94
--- NOTE | 2017-03-20 15:51 | EMERGENCY ROOM VISIT NOTE ---
History First contact with patient: 08:30 Chief Complaint: TESTICULAR PAIN Stated Complaint: SEVERE TESTICULAR PAIN, BACK PAIN Nursing Triage Summary: pt states his pain started a couple of days ago burning sensation denies urgency denies leaking and unprotected sex pt states he had epidipamitis eleven years ago and this feels the same pt states he had a testicular injury twevel years ago and his testiculs have not been the same since scaring on the back of scrotum History of Present Illness The patient is a 36 year old male who presents to the Emergency Room with complaints of bilateral posterior testicular pain for the past several days. The patient reports that he has had a prior history of testicular trauma with scarring, and was seen by urology many years ago. He also reports a history of epididymitis that feels the same as today's presentation. The patient is not sexually active for the past several years. Patient does have a history of chronic back pain, and was recently admitted 3 weeks ago for his back pain. He was seen in the hospital by pain management who recommended physical therapy. The patient has had 1 physical therapy session to date. He reports that his back is feeling better. The patient currently denies any difficulty with urination, hematuria, dysuria, urgency or frequency. He denies any pain radiating into the pelvis. The patient denies any prior history of kidney stones or other kidney problems. He rates his discomfort an 8 out of 10. Review of Systems 10 system review was performed and was negative except for pertinent positives and negatives as indicated in history of present illness Past Medical/Surgical History Medical Problems: (1) Chronic back pain (2) Depression (3) Depression (4) No chronic diseases present (5) Unspecified mood [affective] disorder Family History FHx: cancer Social History Smoking Status: Former Smoker Alcohol Use: none Marital Status: single Housing Status: lives with family Occupation Status: unemployed Current/Historical Medications Scheduled Doxycycline Hyclate (Vibramycin), 100 MG PO BID Physical Exam Vital Signs Date Time Temp Pulse Resp B/P (MAP) Pulse Ox O2 Delivery O2 Flow Rate FiO2 03/20/17 12:17 36.4 69 18 127/81 94 03/20/17 11:01 61 18 114/71 95 03/20/17 08:32 63 18 128/71 99 Room Air 03/20/17 08:24 36.4 Physical Exam CONSTITUTIONAL: Healthy and well nourished. Alert and oriented X 3 with positive affect. Patient appears in mild discomfort. HEENT: Normocephalic, atraumatic. Pupils equal, round and reactive. NECK: Full active range of motion without discomfort. RESPIRATORY: Clear to auscultation bilaterally with no wheezing, crackles, rhonchi or stridor. CARDIOVASCULAR: Regular rate and rhythm with no murmurs, rubs or gallops. GASTROINTESTINAL: Bowel sounds present in all quadrants. Abdomen is soft and nontender to palpation. Negative CVA tenderness. Negative McBurney's point tenderness. GENITOURINARY: Normal-appearing penis. The patient has notable tenderness to palpation and mild edema over the bilateral posterior testicular structures. No palpable scrotal masses, scrotal erythema or tissue thickening. MUSCULOSKELETAL: Full range of motion of all joints without discomfort. She has mild tenderness to palpation through the lower lumbar paraspinous muscles. Negative straight leg raise. Negative logroll. INTEGUMENTARY: No rash or other significant dermatologic conditions noted. NEUROLOGIC: No focal neurologic deficits noted. Medical Decision & Procedures ER Provider Diagnostic Interpretation: Testicular ultrasound does not show any evidence for epididymitis. A small left epididymal cyst is noted. No obvious torsion noted. Radiologist report is as follows: (TESTICULAR) SCROTUM-CONT HISTORY: Pain Bilateral testicular pain COMPARISON: None. FINDINGS: Right testis: Maximum dimension 4.1 cm. Normal vascular flow. Left testis: Maximum dimension 4.2 cm. Normal vascular flow. Small epididymal cyst. IMPRESSION: Normal testicular ultrasound. Small epididymal cyst on the left. Otherwise negative study. Retroperitoneal ultrasound does not show any hydronephrosis. Bilateral ureteral jets are noted. Debris is noted within the bladder. Radiologist report is as follows: RETROPERITONEAL COMPLETE CLINICAL HISTORY: Bilateral testicular pain. COMPARISON STUDY: No previous studies for comparison. FINDINGS: The right testis measures 9.8 x 5.7 x 4.6 cm and the left measures 9.2 x 5 x 4.9 cm. There is no hydronephrosis. Renal echogenicity is at the upper limits of normal. No calculi or masses are identified. Both ureteral jets were identified. There is possible debris within the bladder. IMPRESSION: 1. No hydronephrosis. 2. Possible debris within the gallbladder. This could be correlated with urinalysis. Laboratory Results Test 03/20/17 09:50 Urine Color YELLOW Urine Appearance TURBID (CLEAR) Urine pH 7.5 (4.5-7.5) Urine Specific [place] 1.019 (1.000-1.030) Urine Protein NEG (NEG) Urine Glucose (UA) NEG (NEG) Urine Ketones NEG (NEG) Urine Occult Blood NEG (NEG) Urine Nitrite NEG (NEG) Urine Bilirubin NEG (NEG) Urine Urobilinogen NEG (NEG) Urine Leukocyte Esterase NEG (NEG) Urine WBC (Auto) 1-5 /hpf (0-5) Urine RBC (Auto) 0-4 /hpf (0-4) Urine Hyaline Casts (Auto) 1-5 /lpf (0-5) Urine Epithelial Cells (Auto) 5-10 /lpf (0-5) Urine Bacteria (Auto) NEG (NEG) Urinalysis is not suggestive of infection. ED Course Patient history and physical exam were performed. Nurse's notes were reviewed. I also reviewed documentation from the patient's last admission on 03/04/17. I did review documentation from the pain clinic who suspected musculoskeletal etiology. Physical therapy was suggested, which the patient has had one session to date. The patient reports that his back pain has actually improved since his admission to the hospital, encouraged denies any significant lower back pain. He is more concerned about the possibility of epididymitis, having experienced this before in the past. Vital signs were reviewed and were normal. The patient refused any analgesics on initial exam. Urine dip and urinalysis were unremarkable, and not suggestive of infection. No hematuria is noted. Testicular and retroperitoneal ultrasound studies were normal. Findings were discussed with the patient. At this point, I suggested intermittently apply ice and wearing an athletic support. He was provided contact information for a urologist. Prior to discharge, the patient's mother came to the emergency department and requested inpatient after counseling. It is noted that the patient had an extensive psychiatric workup on his last admission. The patient has an appointment in his on this afternoon with a psychiatric counselor. I did have our psychiatric pillowcase folder talk with the patient and mother, and was advised that the patient does not meet criteria for inpatient treatment. With the patient and mother were in agreement, and will continue with the currently planned home evaluation. The patient was provided contact information for urology and pain management (who the patient actually saw while admitted to our facility) should he need further follow-up. The patient voiced understanding of all discharge instructions, and rated his discomfort a 4 out of 10 at the conclusion of my exam. Medical Decision [place] Drug Monitoring Program Search Results: patient reviewed within database Blood Pressure Screening Patient's blood pressure: Normal blood pressure Impression Primary Impression: Bilateral testicular pain Additional Impressions: Chronic back pain Depression Departure Information Prescriptions Doxycycline Hyclate (VIBRAMYCIN) 100 Mg Cap 100 MG PO BID for 10 Days, #20 CAP Prov: Vishnu Ponce PA 03/20/17 Referrals No Doctor, Assigned (PCP) Patient Instructions My [facility] Problem Qualifiers Additional Impressions: Chronic back pain Back pain location: low back pain Back pain laterality: unspecified Sciatica presence: unspecified whether sciatica present Qualified Codes: M54.5 - Low back pain; G89.29 - Other chronic pain Depression Depression Type: unspecified Qualified Codes: F32.9 - Major depressive disorder, single episode, unspecified
== END 2017-03-20 12:18 | disposition home or self-care (01) ==
LOC: C.EDB 08:23 → C.EDA 12:18
DX: N50.811 Right testicular pain (principal); N50.812 Left testicular pain; M54.5 Low back pain; G89.29 Other chronic pain; F32.9 Major depressive disorder, single episode, unspecified; Z80.9 Family history of malignant neoplasm, unspecified; Z87.891 Personal history of nicotine dependence

== ENCOUNTER 2017-04-15 14:24 | Emergency (ER) | payer OTHER ==
[~2017-04-15] VITALS: Ht 170.2 cm; Wt 56.5 kg
[2017-04-15 14:34] VITALS: Ht 170.2 cm; Wt 56.5 kg
[2017-04-15] MEDS ORDERED: DIPH-437 PO (14:50)
[2017-04-15 15:20] LABS: BASO % 0.4 %; BASO ABS # 0.03 K/uL (0-0.2); EOS % 0.4 %; EOS ABS # 0.03 K/uL (0-0.5); HEMATOCRIT 45.3 % (42-52); HEMOGLOBIN 16.4 g/dL (14.0-18.0); IG# 0.02 K/uL (0.00-0.02); LYMPH % 21.2 %; LYMPH ABS # 1.61 K/uL (1.2-3.4); MEAN CELL VOLUME 89.9 fL (80-100); MEAN CORPUSCULAR HEMOGLOBIN 32.5 pg (25-34); MEAN CORPUSCULAR HGB CONC 36.2 g/dl (32-36); MEAN PLATELET VOLUME 9.9 fL (7.4-10.4); MONO % 8.3 %; MONO ABS # 0.63 K/uL (0.11-0.59); NEUT % 69.4 %; NEUT ABS # 5.27 K/uL (1.4-6.5); PLATELET COUNT 288 K/uL (130-400); RED CELL DISTRIBUTION WIDTH CV 12.4 % (11.5-14.5); RED CELL DISTRIBUTION WIDTH SD 40.5 fL (36.4-46.3); WHITE BLOOD COUNT 7.59 K/uL (4.8-10.8)
[2017-04-15 15:39] LABS: ALBUMIN 3.7 gm/dl (3.4-5.0); ALT/SGPT 60 U/L (12-78); BLOOD UREA NITROGEN 15 mg/dl (7-18); CALCIUM 8.9 mg/dl (8.5-10.1); CARBON DIOXIDE 31 mmol/L (21-32); CREATININE 0.86 mg/dl (0.60-1.40); GLUCOSE 103 mg/dl (70-99); POTASSIUM 4.6 mmol/L (3.5-5.1); SODIUM 138 mmol/L (136-145)
[2017-04-15 15:50] LABS: ALKALINE PHOSPHATASE 63 U/L (45-117); AST/SGOT 32 U/L (15-37); TOTAL PROTEIN 7.7 gm/dl (6.4-8.2)
[2017-04-15] MEDS ORDERED: hydrOXYzine HCL 25 MG TAB PO STA (16:46)
[2017-04-15] MEDS ORDERED: HYDR50CA2 PO (16:49)
[2017-04-15 17:20] VITALS: BP 107/70; PULSE 78; TEMP 36.9; O2SAT 97
--- NOTE | 2017-04-15 19:04 | EMERGENCY ROOM VISIT NOTE ---
History Report prepared by Rich: Elsy Salazar Under the Supervision of: Dr. Ronak Price D.O. First contact with patient: 14:34 Chief Complaint: MENTAL HEALTH EVALUATION Stated Complaint: SUICIDAL History of Present Illness The patient is a 36 year old male who presents to the Emergency Room with complaints of persistent back pain for four years. The patient notes the pain has been so bad that he has had thoughts of self-harm, though he states that he does not want to kill himself, he just wants the pain to go away. He notes the pain in his back has caused him to lose sleep for 4 years. The patient is whispering, because he reports that talking worsens his back pain. He states that he goes several days without sleep until about the fifth day and he is able to get four hours of sleep. He currently denies any thoughts of self-harm. Per mother, the patient has had two appointments with physical therapy, though he states that he has not followed through with the prescribed exercises. He states that he had taken Ambien to help with the sleep, though the pain became so difficult that he still could not sleep. He also notes that he was on Prednisone, though he notes the medication caused his back to heat up and worsened his pain, so he stopped taking it. He notes the pain is in the middle of his back. He reports that hot showers have helped provide relief. He reports that it has been four years since his last MRI. He notes testicular pain and mild difficulty urinating. He was seen March 20, 2017 for bilateral testicular pain. An ultrasound of the testicles and the kidneys were unremarkable. He was admitted for back pain March 04, 2017. He was seen by pain management. He declined an MRI at that time. He denies any fevers, weakness or numbness in the legs. He states that he does feel weak in general. He denies any drug use. Source of History: patient, parent Onset: four years Position: back Quality: other (excruciating ) Timing: other (persistent) Modifying Factors (Worsening): other (talking) Associated Symptoms: + back pain, + urinary symptoms (difficulty urinating) , + weakness (general), No fevers, No numbness Note: He notes testicular pain and loss of sleep. He denies any thoughts of self-harm. He denies any weakness in his legs. Review of Systems See HPI for pertinent positives & negatives. A total of 10 systems reviewed and were otherwise negative. Past Medical & Surgical Medical Problems: (1) Chronic back pain (2) Depression (3) Depression (4) No chronic diseases present (5) Unspecified mood [affective] disorder Family History FHx: cancer Social History Smoking Status: Former Smoker Alcohol Use: none Drug Use: none Marital Status: single Housing Status: lives with family Occupation Status: unemployed Current/Historical Medications Scheduled Acetaminophen/Diphenhydramine (Tylenol Pm), 2 TAB PO HS Hydroxyzine Pamoate (Vistaril), 50 MG PO HS Allergies Coded Allergies: Sulfa Drugs (Verified Allergy, Unknown, ., 03/20/17) Physical Exam Vital Signs Date Time Temp Pulse Resp B/P (MAP) Pulse Ox O2 Delivery O2 Flow Rate FiO2 04/15/17 17:20 36.9 78 16 107/70 97 04/15/17 16:52 78 16 107/70 97 Room Air 04/15/17 14:34 36.9 90 18 104/71 97 Room Air Physical Exam GENERAL: Laying bed holding lower back. Cachetic, disheveled appearing, mal- nourished, no distress, non-toxic. Talking in lower voice. EYE EXAM: normal conjunctiva. OROPHARYNX: no exudate, no erythema, lips, buccal mucosa, and tongue normal and mucous membranes are moist NECK: supple, no nuchal rigidity, no adenopathy, non-tender LUNGS: Clear to auscultation. Normal chest wall mechanics HEART: no murmurs, S1 normal and S2 normal ABDOMEN: abdomen soft, non-tender, normo-active bowel sounds, no masses, no rebound or guarding. BACK: Back is symmetrical on inspection and there is no deformity, no midline tenderness, no CVA tenderness. SKIN: no rashes and no bruising UPPER EXTREMITIES: upper extremities are grossly normal. Flexion and extension of UE is intact. Initially poor effort with RUE, secondary to pain in back. LOWER EXTREMITIES: No pitting edema. flexion and extension of the hips, knees, ankles, and EHL are intact with persistent encouragement. Unable to obtain patellar reflexes. NEURO EXAM: Awake, alert, and following commands. Oriented to person, place and time. Cranial nerves II-XII intact. Medical Decision & Procedures Laboratory Results 04/15/17 15:06 Red Blood Count 5.04, Mean Corpuscular Volume 89.9, Mean Corpuscular Hemoglobin 32.5, Mean Corpuscular Hemoglobin Concent 36.2, Mean Platelet Volume 9.9, Neutrophils (%) (Auto) 69.4, Lymphocytes (%) (Auto) 21.2, Monocytes (%) (Auto) 8.3, Eosinophils (%) (Auto) 0.4, Basophils (%) (Auto) 0.4, Neutrophils # (Auto) 5.27, Lymphocytes # (Auto) 1.61, Monocytes # (Auto) 0.63, Eosinophils # (Auto) 0.03, Basophils # (Auto) 0.03 04/15/17 15:06 Test 04/15/17 15:06 White Blood Count 7.59 K/uL (4.8-10.8) Red Blood Count 5.04 M/uL (4.7-6.1) Hemoglobin 16.4 g/dL (14.0-18.0) Hematocrit 45.3 % (42-52) Mean Corpuscular Volume 89.9 fL (80-100) Mean Corpuscular Hemoglobin 32.5 pg (25-34) Mean Corpuscular Hemoglobin Concent 36.2 g/dl (32-36) Platelet Count 288 K/uL (130-400) Mean Platelet Volume 9.9 fL (7.4-10.4) Neutrophils (%) (Auto) 69.4 % Lymphocytes (%) (Auto) 21.2 % Monocytes (%) (Auto) 8.3 % Eosinophils (%) (Auto) 0.4 % Basophils (%) (Auto) 0.4 % Neutrophils # (Auto) 5.27 K/uL (1.4-6.5) Lymphocytes # (Auto) 1.61 K/uL (1.2-3.4) Monocytes # (Auto) 0.63 K/uL (0.11-0.59) Eosinophils # (Auto) 0.03 K/uL (0-0.5) Basophils # (Auto) 0.03 K/uL (0-0.2) RDW Standard Deviation 40.5 fL (36.4-46.3) RDW Coefficient of Variation 12.4 % (11.5-14.5) Immature Granulocyte % (Auto) 0.3 % Immature Granulocyte # (Auto) 0.02 K/uL (0.00-0.02) Erythrocyte Sedimentation Rate 6 mm/hr (0-14) Anion Gap 6.0 mmol/L (3-11) Est Creatinine Clear Calc Drug Dose 94.9 ml/min Estimated GFR () 129.3 Estimated GFR (Non- 111.6 BUN/Creatinine Ratio 17.4 (10-20) Calcium Level 8.9 mg/dl (8.5-10.1) Total Bilirubin 0.4 mg/dl (0.2-1) Direct Bilirubin < 0.1 mg/dl (0-0.2) Aspartate Amino Transf (AST/SGOT) 32 U/L (15-37) Alanine Aminotransferase (ALT/SGPT) 60 U/L (12-78) Alkaline Phosphatase 63 U/L (45-117) Total Protein 7.7 gm/dl (6.4-8.2) Albumin 3.7 gm/dl (3.4-5.0) Thyroid Stimulating Hormone (TSH) 0.971 uIu/ml (0.300-4.500) Ethyl Alcohol mg/dL < 3.0 mg/dl (0-3) Laboratory results per my review. Medications Administered Medications (Trade) Dose Ordered Sig/Ching Route Start Time Stop Time Status Last Admin Dose Admin Hydroxyzine HCl (Vistaril Tab) 50 mg NOW STAT PO 04/15/17 16:46 04/15/17 16:47 DC 04/15/17 17:04 50 MG ED Course ED COURSE: Vital signs were reviewed and showed normal. The patients medical record was reviewed The above diagnostic studies were performed and reviewed. ED treatments and interventions as stated above. 1450: The patient was evaluated in room A7. A complete history and physical examination was performed. 1645: I spoke with Agnes, Psychiatric case management. We discussed the patient' s case. The patient does not meet inpatient criteria at this time. 1705: Upon reevaluation, the patient feels comfortable going home. The mother feels safe taking the patient home. The patient does not want any imaging. I discussed my findings with the patient and he understands and agrees with the treatment plan. Based on the patients age, coexisting illnesses, exam and lab findings the decision to treat as an outpatient was made. The patient remained stable while under my care. The patient appeared well at the time of discharge. Medical Decision Prior records/ancillary studies reviewed. Triage Nursing notes reviewed. The patient's history was concerning for back pain. Differential diagnosis: Etiologies such as musculoskeletal, disc herniation, fracture, aortic disease, metastatic disease, cord compression, discitis, infection, renal colic, gastrointestinal, acute exacerbation of chronic back pain, sciatica, cauda equina, as well as others were entertained. The patient's history was also concerning for possible psychiatric disturbance. Differential diagnosis: Etiologies such as mood disorder, infection, hypoglycemia, electrolyte abnormalities, cardiac sources, intracerebral event, toxicologic, neurologic, as well as others were entertained. Patient is a 36-year-old male who presents the ER with mom at bedside for sitting intermittently that does not want to live. He has had chronic back pain which has been unchanged for the past 4 years. He has had previous MRIs and follow-up with orthopedics. He currently has PT but is no longer using their services and he is only seen them twice. He has multiple prescriptions for Ambien in combination with Flexeril which per mom he is not using either. He notes he is not using these medications because of the work. He denies any change in his back pain. He was recently admitted for the same issue. He denies any current plan to kill himself. He notes he would never kill himself. Mom notes that he will just intermittently state that he does not think he will make it through when these episodes become very bad. CBC along with BMP, LFTs, bilirubin TSH was unremarkable. Sedimentation rate was normal. No IV drugs. No history cancer. Alcohol was negative. Patient declined x-rays of the back is admits to painful to stand up. Agnes evaluated both patient and discussed with mom her concerns. The patient meets no inpatient criteria per Agnes. Patient has never made any active threats of self-harm. He does not want to come in. There is no grounds for 302 at this time. Patient was given Vistaril. He was discharged to follow-up with PCP as an outpatient along with his therapist. Patient ambulated out of the ER. Discussed with Pt concerning signs and symptoms to watch out for. Pt was instructed to follow up with their PCP and discussed with the patient their option to return to the ED at anytime for persistent or worsening symptoms. The appropriate anticipatory guidance and out-patient management, including indications for return to the emergency department, were explained at length to the patient and understood. Medication Reconcilliation Current Medication List: was personally reviewed by me Blood Pressure Screening Patient's blood pressure: Normal blood pressure Impression Primary Impression: Mood disorder Additional Impression: Chronic back pain Scribe Attestation The scribe's documentation has been prepared under my direction and personally reviewed by me in its entirety. I confirm that the note above accurately reflects all work, treatment, procedures, and medical decision making performed by me. Departure Information Dispostion Home / Self-Care Prescriptions Hydroxyzine Pamoate (VISTARIL) 50 Mg Cap 50 MG PO HS for Anxiety, #10 CAP Prov: Ronak Price, DO 04/15/17 Referrals No Doctor, Assigned (PCP) Forms HOME CARE DOCUMENTATION FORM, IMPORTANT VISIT INFORMATION Patient Instructions Back Pain - [facility], ED Depression, My [facility] Additional Instructions Please follow up with your primary care doctor with in the next 24 hours. Any worsening of your symptoms, please return to the ED immediately. This includes any fevers greater than 100.4, worsening pain, chest pain, shortness breath, persistent nausea, vomiting, unable to eat or drink, weakness or numbness in her legs, unable to void, unable to move your bowels, or any other concerning signs or symptoms from your standpoint. You were given medications during this visit that will inhibit your ability to drive, operate machinery and work. Please do NOT drive, operate machinery, drink alcohol or work for the next 12hrs or within 12hrs of taking this medication. Problem Qualifiers Additional Impression: Chronic back pain Back pain location: low back pain Back pain laterality: unspecified Sciatica presence: unspecified whether sciatica present Qualified Codes: M54.5 - Low back pain; G89.29 - Other chronic pain
== END 2017-04-15 17:20 | disposition home or self-care (01) ==
LOC: C.EDB 14:25 → C.EDA 17:20
DX: F39 Unspecified mood [affective] disorder (principal); M54.5 Low back pain; G89.29 Other chronic pain; Z87.891 Personal history of nicotine dependence; Z88.2 Allergy status to sulfonamides; Z80.9 Family history of malignant neoplasm, unspecified

== ENCOUNTER 2017-04-17 12:54 | Emergency (ER) | payer OTHER ==
[~2017-04-17] VITALS: Ht 170.2 cm; Wt 54.9 kg
[~2017-04-17 12:54] MED LIST changes: +DIPH-437 PO; +HYDR50CA2 PO; -LRS10 PO; -TRAM-10 PO; -VENL-57 PO
[2017-04-17 13:00] VITALS: TEMP 36.6; Ht 170.2 cm; Wt 54.9 kg
[2017-04-17] MEDS ORDERED: LORAZEPAM 1 MG TAB PO STA (13:37)
--- NOTE | 2017-04-17 13:43 | EMERGENCY ROOM VISIT NOTE ---
History Report prepared by Rich: Earle Hayes Under the Supervision of: Dr. Carlos Arora M.D. First contact with patient: 13:00 Chief Complaint: MENTAL HEALTH EVALUATION Stated Complaint: PSYCH EVAL History of Present Illness The patient is a 36 year old white male with a history of depression, mood disorder, and chronic back pain, who presents to the Emergency Room with complaints of constant chronic back pain that he states that he has been dealing with for 4 years since a work accident. The patient states that this pain is keeping him awake at night and that he has not been able to sleep for 2.5 months. He did take Vistaril last night but was still not able to sleep. He states that he is in bed most of the day, but gets up and walks when he can. Walking exacerbates his pain. He is very hungry all day and claims he is eating 4000 calories per day. The patient states that the thought of hurting himself does cross his mind, but he has no plan. Per the Psychiatric Watermelon Inspector the patient's mother visits with [facility] for psychiatric issues. The mother's physician called here today and said that the mother told her that the son went to the the [facility] yesterday to get a gun. The patient told her that he was getting the gun for self-protection. Source of History: patient Onset: 4 years Position: back Timing: constant, other (Chronic) Modifying Factors (Worsening): other (Walking) Note: Patient states thoughts of hurting himself. Review of Systems See HPI for pertinent positives and negatives. A total of ten systems were reviewed and were otherwise negative. Past Medical & Surgical Medical Problems: (1) Chronic back pain (2) Depression (3) Depression (4) No chronic diseases present (5) Unspecified mood [affective] disorder Family History FHx: cancer Social History Smoking Status: Never Smoker Alcohol Use: none Drug Use: none Marital Status: single Housing Status: lives with family Occupation Status: unemployed Current/Historical Medications Scheduled Hydroxyzine Pamoate (Vistaril), 50 MG PO HS Allergies Coded Allergies: Sulfa Drugs (Verified Allergy, Unknown, ., 04/17/17) Physical Exam Vital Signs Date Time Temp Pulse Resp B/P (MAP) Pulse Ox O2 Delivery O2 Flow Rate FiO2 04/17/17 16:25 85 19 134/69 95 Room Air 04/17/17 13:00 36.6 67 16 113/72 99 Room Air Physical Exam GENERAL: Patient whispers when talking, appears thin, Awake, alert, well- appearing, NAD HENT: Normocephalic, atraumatic. EYES: Normal conjunctiva. Sclera non-icteric. NECK: Supple. No nuchal rigidity. FROM. RESPIRATORY: CTAB, no rhonchi, wheezing, crackles CARDIAC: RRR, no MRG ABDOMEN: Soft, NTND, BS+ MSK: No chest wall TTP, no LE edema NEURO: No saddle anesthesia, neurovascularly intact in bilateral lower extremities. Low back pain present on exam. SKIN: No rash or jaundice noted. PSYCH: Appropriate. Does whisper when talking. Follows commands. Positive suicidal thoughts. Medical Decision & Procedures Laboratory Results 04/17/17 13:36 Red Blood Count 4.98, Mean Corpuscular Volume 90.4, Mean Corpuscular Hemoglobin 32.3, Mean Corpuscular Hemoglobin Concent 35.8, Mean Platelet Volume 9.7, Neutrophils (%) (Auto) 75.1, Lymphocytes (%) (Auto) 19.3, Monocytes (%) (Auto) 4.7, Eosinophils (%) (Auto) 0.4, Basophils (%) (Auto) 0.1, Neutrophils # (Auto) 5.49, Lymphocytes # (Auto) 1.41, Monocytes # (Auto) 0.34, Eosinophils # (Auto) 0.03, Basophils # (Auto) 0.01 04/17/17 13:36 Test 04/17/17 13:36 04/17/17 17:10 White Blood Count 7.31 K/uL (4.8-10.8) Red Blood Count 4.98 M/uL (4.7-6.1) Hemoglobin 16.1 g/dL (14.0-18.0) Hematocrit 45.0 % (42-52) Mean Corpuscular Volume 90.4 fL (80-100) Mean Corpuscular Hemoglobin 32.3 pg (25-34) Mean Corpuscular Hemoglobin Concent 35.8 g/dl (32-36) Platelet Count 279 K/uL (130-400) Mean Platelet Volume 9.7 fL (7.4-10.4) Neutrophils (%) (Auto) 75.1 % Lymphocytes (%) (Auto) 19.3 % Monocytes (%) (Auto) 4.7 % Eosinophils (%) (Auto) 0.4 % Basophils (%) (Auto) 0.1 % Neutrophils # (Auto) 5.49 K/uL (1.4-6.5) Lymphocytes # (Auto) 1.41 K/uL (1.2-3.4) Monocytes # (Auto) 0.34 K/uL (0.11-0.59) Eosinophils # (Auto) 0.03 K/uL (0-0.5) Basophils # (Auto) 0.01 K/uL (0-0.2) RDW Standard Deviation 40.6 fL (36.4-46.3) RDW Coefficient of Variation 12.3 % (11.5-14.5) Immature Granulocyte % (Auto) 0.4 % Immature Granulocyte # (Auto) 0.03 K/uL (0.00-0.02) Anion Gap 6.0 mmol/L (3-11) Est Creatinine Clear Calc Drug Dose 100.4 ml/min Estimated GFR () 133.9 Estimated GFR (Non- 115.5 BUN/Creatinine Ratio 20.6 (10-20) Calcium Level 8.7 mg/dl (8.5-10.1) Total Bilirubin 0.6 mg/dl (0.2-1) Aspartate Amino Transf (AST/SGOT) 33 U/L (15-37) Alanine Aminotransferase (ALT/SGPT) 66 U/L (12-78) Alkaline Phosphatase 61 U/L (45-117) Total Protein 7.3 gm/dl (6.4-8.2) Albumin 3.7 gm/dl (3.4-5.0) Globulin 3.6 gm/dl (2.5-4.0) Albumin/Globulin Ratio 1.0 (0.9-2) Thyroid Stimulating Hormone (TSH) 0.856 uIu/ml (0.300-4.500) Salicylates Level < 1.7 mg/dl (2.8-20) Acetaminophen Level < 2 ug/ml (10-30) Ethyl Alcohol mg/dL < 3.0 mg/dl (0-3) Urine Color YELLOW Urine Appearance CLOUDY (CLEAR) Urine pH 7.0 (4.5-7.5) Urine Specific [place] 1.021 (1.000-1.030) Urine Protein NEG (NEG) Urine Glucose (UA) NEG (NEG) Urine Ketones NEG (NEG) Urine Occult Blood NEG (NEG) Urine Nitrite NEG (NEG) Urine Bilirubin NEG (NEG) Urine Urobilinogen NEG (NEG) Urine Leukocyte Esterase NEG (NEG) Urine WBC (Auto) 1-5 /hpf (0-5) Urine RBC (Auto) 0-4 /hpf (0-4) Urine Hyaline Casts (Auto) 1-5 /lpf (0-5) Urine Epithelial Cells (Auto) 5-10 /lpf (0-5) Urine Bacteria (Auto) NEG (NEG) Urine Opiates Screen NEG (NEG) Urine Methadone, Qualitative NEG (NEG) Urine Barbiturates NEG (NEG) Urine Phencyclidine (PCP) Level NEG (NEG) Ur Amphetamine/Methamphetamine NEG (NEG) MDMA (Ecstasy) Screen NEG (NEG) Urine Benzodiazepines Screen NEG (NEG) Urine Cocaine Metabolite NEG (NEG) Urine Marijuana (THC) NEG (NEG) Laboratory results reviewed by me Medications Administered Medications (Trade) Dose Ordered Sig/Ching Route Start Time Stop Time Status Last Admin Dose Admin Lorazepam (Ativan Tab) 1 mg NOW STAT PO 04/17/17 13:37 04/17/17 13:38 DC 04/17/17 13:46 1 MG ED Course 1325: The patient was evaluated in room A6. A complete history and physical exam was performed. 1337: Ordered Lorazepam 1 mg PO. 1727: I discussed the case with the Psychiatric Watermelon Inspector at this time. He has been accepted by [facility]. He will be transferred once the Urine Drug Screen is resulted. Medical Decision The patient is a 36 year old white male with a history of depression, mood disorder, and chronic back pain, who presents to the Emergency Room with complaints of constant chronic back pain that he states that he has been dealing with for 4 years since a work accident. Differential diagnosis: Etiologies such as mood disorder, infection, hypoglycemia, electrolyte abnormalities, cardiac sources, intracerebral event, toxicologic, neurologic, as well as others were entertained. Prior records were reviewed. Patient was seen and evaluated at the bedside. The patient has been complaining of some low back pains. Patient did state he did have some suicidal ideation. Reportedly the patient did go to the neighbors asking for a gun. He reported this is for protection. The mother was concerned of all cheerier motives. Patient denies any AVH, or HI. Patient has no signs of cauda equina. The patient has no bowel or bladder incontinence no saddle anesthesia and is neurovascularly intact distally in his lower extremities. Patient did have blood work completed along with a tox screen. Patient's blood work unremarkable tox screen negative. Pending UDS. Patient was accepted as a voluntary inpatient psychiatric treatment to the [facility]. Patient was transferred. Medication Reconcilliation Current Medication List: was personally reviewed by me Blood Pressure Screening Patient's blood pressure: Normal blood pressure Impression Primary Impression: Suicidal ideation Scribe Attestation The scribe's documentation has been prepared under my direction and personally reviewed by me in its entirety. I confirm that the note above accurately reflects all work, treatment, procedures, and medical decision making performed by me. Departure Information Dispostion [facility] ([place]) Referrals No Doctor, Assigned (PCP) Patient Instructions [facility]
[2017-04-17 13:48] LABS: BASO % 0.1 %; BASO ABS # 0.01 K/uL (0-0.2); EOS % 0.4 %; EOS ABS # 0.03 K/uL (0-0.5); HEMOGLOBIN 16.1 g/dL (14.0-18.0); IG# 0.03 K/uL (0.00-0.02); LYMPH % 19.3 %; LYMPH ABS # 1.41 K/uL (1.2-3.4); MEAN CELL VOLUME 90.4 fL (80-100); MEAN CORPUSCULAR HEMOGLOBIN 32.3 pg (25-34); MEAN CORPUSCULAR HGB CONC 35.8 g/dl (32-36); MEAN PLATELET VOLUME 9.7 fL (7.4-10.4); MONO % 4.7 %; MONO ABS # 0.34 K/uL (0.11-0.59); NEUT % 75.1 %; NEUT ABS # 5.49 K/uL (1.4-6.5); PLATELET COUNT 279 K/uL (130-400); RED CELL DISTRIBUTION WIDTH CV 12.3 % (11.5-14.5); RED CELL DISTRIBUTION WIDTH SD 40.6 fL (36.4-46.3); WHITE BLOOD COUNT 7.31 K/uL (4.8-10.8)
[2017-04-17 14:10] LABS: ALBUMIN 3.7 gm/dl (3.4-5.0); CALCIUM 8.7 mg/dl (8.5-10.1); CREATININE 0.79 mg/dl (0.60-1.40); POTASSIUM 4.1 mmol/L (3.5-5.1)
[2017-04-17 14:21] LABS: TOTAL PROTEIN 7.3 gm/dl (6.4-8.2)
[2017-04-17 16:25] VITALS: BP 134/69; PULSE 85; O2SAT 95
== END 2017-04-17 19:42 ==
LOC: EDBD 12:54 → C.EDA 12:55
DX: R45.851 Suicidal ideations (principal); M54.9 Dorsalgia, unspecified; G89.29 Other chronic pain; F32.9 Major depressive disorder, single episode, unspecified; Z80.9 Family history of malignant neoplasm, unspecified; Z79.899 Other long term (current) drug therapy; Z88.2 Allergy status to sulfonamides